=== PATIENT | male | born 1970 | race Caucasian/White ===

== ENCOUNTER 2016-06-22 12:28 | Emergency (ER) | payer SELFPAY ==
[2016-06-22 13:04] LABS: APPEARANCE CLOUDY (CLEAR); COLOR YELLOW (YELLOW); LEUKOCYTE ESTERASE 2+ (NEGATIVE); NITRITE POSITIVE (NEGATIVE)
[2016-06-22 13:05] LABS: BACTERIA MANY /hpf (NONE SEEN); BILIRUBIN NEGATIVE (NEGATIVE); EPITHELIAL CELLS OCC /hpf (0-5); GLUCOSE NEGATIVE (NEGATIVE); GRANULAR CAST NONE SEEN /lpf (NONE SEEN); HYALINE CAST NONE SEEN /lpf (NONE SEEN); KETONE NEGATIVE (NEGATIVE); MUCUS NONE SEEN /lpf (NONE SEEN); PROTEIN 2+ mg/dL (NEGATIVE); RED CELL CAST NONE SEEN /lpf (NONE SEEN); RED CELLS - URINE OCC /hpf (0-5); SPERMATOZOA NONE SEEN /hpf (NONE SEEN); UROBILINOGEN NORMAL (NORMAL); YEAST NONE SEEN /hpf (NONE SEEN)
[2016-06-22 13:15] LABS: BASOPHILS 0.1 % (0.0-2.0); EOSINOPHILS 0.1 % (0-7); HEMATOCRIT 46.9 % (42.0-54.0); HEMOGLOBIN 16.3 g/dL (13.5-17.5); IMMATURE GRANULOCYTES 0.2 % (0-5); LYMPHOCYTES 11.1 % (15-50); MCH 32.9 pg (26.0-34.0); MCHC 34.8 g/dL (31.0-37.0); MCV 94.6 fL (80.0-100.0); MEAN PLATELET VOLUME 11.1 fL (7.4-10.4); MONOCYTES 12.2 % (2-11); NEUTROPHILS 76.3 % (40-80); PLATELET COUNT 168 10x3/uL (130-400); RBC 4.96 10x6/uL (4.20-6.10); RDW 13.3 % (11.5-14.5); WBC 18.1 10x3/uL (4.8-10.8)
[2016-06-22 13:40] LABS: ALBUMIN 3.4 g/dL (3.4-5.0); ALKALINE PHOSPHATASE 100 U/L (46-116); ALT (SGPT) 30 U/L (10-68); CALC OSMOLALITY 273 mosm/kg (275-300); CALCIUM 8.7 mg/dL (8.5-10.1); CARBON DIOXIDE 31.1 mmol/L (21.0-32.0); CHLORIDE - SERUM 98 mmol/L (98-107); CREATININE - SERUM 0.9 mg/dL (0.6-1.3); GLUCOSE 104 mg/dL (74-106); POTASSIUM - SERUM 4.2 mmol/L (3.5-5.1); PROTEIN - SERUM 7.6 g/dL (6.4-8.2); SODIUM 136 mmol/L (136-145); UREA NITROGEN 18 mg/dL (7-18); eGFR NON AFRICAN AMERICAN > 90 mL/min (90-120)
[2016-06-24 03:23] VITALS: BMI 24.4
== END 2016-06-22 16:35 | disposition home or self-care (01) ==
LOC: D.ER 12:28
PROVIDERS: Emergency Medicine
DX: N10 Acute pyelonephritis (principal); F17.200 Nicotine dependence, unspecified, uncomplicated

== ENCOUNTER 2016-06-23 21:38 | Inpatient (IN) | payer SELFPAY ==
[~2016-06-23] VITALS: Ht 182.9 cm; Wt 81.8 kg
[2016-06-24 00:14] LABS: BASOPHILS 0.1 % (0.0-2.0); EOSINOPHILS 0.1 % (0-7); HEMATOCRIT 42.7 % (42.0-54.0); HEMOGLOBIN 14.7 g/dL (13.5-17.5); IMMATURE GRANULOCYTES 0.2 % (0-5); LYMPHOCYTES 8.7 % (15-50); MCH 32.3 pg (26.0-34.0); MCHC 34.4 g/dL (31.0-37.0); MCV 93.8 fL (80.0-100.0); MEAN PLATELET VOLUME 11.2 fL (7.4-10.4); MONOCYTES 19.9 % (2-11); PLATELET COUNT 168 10x3/uL (130-400); RBC 4.55 10x6/uL (4.20-6.10); RDW 13.4 % (11.5-14.5); WBC 15.3 10x3/uL (4.8-10.8)
[2016-06-24 00:29] LABS: ALKALINE PHOSPHATASE 91 U/L (46-116); BILIRUBIN - TOTAL 0.54 mg/dL (0.2-1.3); CALC OSMOLALITY 273 mosm/kg (275-300); CALCIUM 8.8 mg/dL (8.5-10.1); CARBON DIOXIDE 26.8 mmol/L (21.0-32.0); CHLORIDE - SERUM 100 mmol/L (98-107); CREATININE - SERUM 0.8 mg/dL (0.6-1.3); GLUCOSE 114 mg/dL (74-106); POTASSIUM - SERUM 3.8 mmol/L (3.5-5.1); PROTEIN - SERUM 7.9 g/dL (6.4-8.2); SODIUM 136 mmol/L (136-145); UREA NITROGEN 15 mg/dL (7-18); eGFR NON AFRICAN AMERICAN > 90 mL/min (90-120)
[2016-06-24 00:31] LABS: ALT (SGPT) 22 U/L (10-68)
[2016-06-24 01:30] LABS: APPEARANCE CLEAR (CLEAR); BILIRUBIN NEGATIVE (NEGATIVE); COLOR DK YELLOW (YELLOW); GLUCOSE NEGATIVE (NEGATIVE); KETONE NEGATIVE (NEGATIVE); LEUKOCYTE ESTERASE TRACE (NEGATIVE); NITRITE NEGATIVE (NEGATIVE); PROTEIN 1+ mg/dL (NEGATIVE)
[2016-06-24 01:35] LABS: BACTERIA MODERATE /hpf (NONE SEEN); EPITHELIAL CELLS 0-5 /hpf (0-5); HYALINE CAST RARE /lpf (NONE SEEN); MUCUS >1+ /lpf (NONE SEEN); RED CELLS - URINE 0-5 /hpf (0-5)
--- NOTE | 2016-06-24 02:34 | NUR ---
REC'D TO ROOM 2234 FROM ER DEPT PER WC A 45 Y/O W/M PER SERVICES DR. MARIA WITH DX. UTI/POLYNEPHRITIS ALLERGY=PNC. SALINE LOCK PATENT RT FORE ARM SITE CLEAR. AT BEDSIDE. UP AD ROCKY IN ROOM. ASSESSMENT PER ADMIT PACKET.
[2016-06-24] MEDS ORDERED: CIPRO500 MG PO (03:10)
[2016-06-24] MEDS ORDERED: PHENERGAN25 M1 PO (03:11)
[2016-06-24] MEDS ORDERED: ACETAMINOPHEN500 M1 PO (03:12)
--- NOTE | 2016-06-24 03:18 | NUR ---
NS STARTED AT 125CC'S/HR TO IV SITE RT FOREARM. SR UP X2 CALL LIGHT WITHIN REACH.
[2016-06-24 03:23] VITALS: BP 133/85; Ht 182.9 cm; Wt 81.8 kg
[2016-06-24 07:58] VITALS: BP 130/79
--- NOTE | 2016-06-24 08:05 | NUR ---
PT AOX4 RESP EVEN AND NONLABORED IV TO RIGHT FOREARM PATENT AND INTACT PT DENIES NEEDS AT THIS TIME WILL CONTINUE TO MONITOR BED AT LOWEST SETTING CALL LIGHT WITHIN REACH
[2016-06-24 11:45] VITALS: BP 123/89
[2016-06-24 12:53] LABS: BASOPHILS 0.2 % (0.0-2.0); EOSINOPHILS 0.6 % (0-7); HEMOGLOBIN 13.8 g/dL (13.5-17.5); IMMATURE GRANULOCYTES 0.2 % (0-5); LYMPHOCYTES 11.6 % (15-50); MCH 31.7 pg (26.0-34.0); MCHC 33.7 g/dL (31.0-37.0); MEAN PLATELET VOLUME 10.9 fL (7.4-10.4); MONOCYTES 14.5 % (2-11); NEUTROPHILS 72.9 % (40-80); PLATELET COUNT 174 10x3/uL (130-400); RBC 4.36 10x6/uL (4.20-6.10); RDW 13.5 % (11.5-14.5); WBC 12.1 10x3/uL (4.8-10.8)
[2016-06-24 15:16] VITALS: BP 122/82
[2016-06-24 20:00] VITALS: BP 132/73
--- NOTE | 2016-06-24 20:56 | NUR ---
RESTING IN BED NO ACUTE DISTRESS NOTED VOICES NEEDS TO STAFF ALL ADLS PER STAFF ASSIST CALL LIGHT IN REACH SIDE RAILS UP X 2
[2016-06-25] VITALS: BP 135/78
--- NOTE | 2016-06-25 02:08 | NUR ---
PT IV RESITED DUE TO INFILTRATION RESITED TO LEFT FORARM 20 GA X 1 STICK.
--- NOTE | 2016-06-25 03:18 | NUR ---
PT SEEN. RESTING QUIETLY WITH EYES CLOSED. RESP EVEN AND UNLABORED. IV LEFT ARM WITHOUT REDDNESS OR SWELLING. FAMILY AT BEDISDE. CALL LIGHT IN REACH
[2016-06-25 04:00] VITALS: BP 117/64
--- NOTE | 2016-06-25 05:31 | NUR ---
PT OFF OF FLOOR AT THE MOMENT.
[2016-06-25 06:14] LABS: BASOPHILS 0.2 % (0.0-2.0); EOSINOPHILS 1.8 % (0-7); HEMATOCRIT 39.6 % (42.0-54.0); HEMOGLOBIN 13.2 g/dL (13.5-17.5); IMMATURE GRANULOCYTES 0.3 % (0-5); MCH 31.4 pg (26.0-34.0); MCHC 33.3 g/dL (31.0-37.0); MCV 94.3 fL (80.0-100.0); MEAN PLATELET VOLUME 11.1 fL (7.4-10.4); MONOCYTES 15.5 % (2-11); NEUTROPHILS 58.2 % (40-80); PLATELET COUNT 206 10x3/uL (130-400); RDW 13.6 % (11.5-14.5); WBC 9.9 10x3/uL (4.8-10.8)
[2016-06-25 06:34] LABS: ALBUMIN 2.4 g/dL (3.4-5.0); ALKALINE PHOSPHATASE 71 U/L (46-116); ALT (SGPT) 19 U/L (10-68); BILIRUBIN - TOTAL 0.51 mg/dL (0.2-1.3); CALC OSMOLALITY 276 mosm/kg (275-300); CALCIUM 8.1 mg/dL (8.5-10.1); CARBON DIOXIDE 24.6 mmol/L (21.0-32.0); CHLORIDE - SERUM 105 mmol/L (98-107); CREATININE - SERUM 0.8 mg/dL (0.6-1.3); GLUCOSE 102 mg/dL (74-106); PROTEIN - SERUM 6.7 g/dL (6.4-8.2); SODIUM 139 mmol/L (136-145); UREA NITROGEN 11 mg/dL (7-18); eGFR NON AFRICAN AMERICAN > 90 mL/min (90-120)
--- NOTE | 2016-06-25 08:07 | NUR ---
RESITING IN BED, DENIES NEEDS, ALERT AND ORIENTED, CALL LIGHT IN REACH, BED LOWEST POSITION, WILL CONTINUE TO MONITOR
[2016-06-25 08:26] VITALS: BP 121/78
[2016-06-25] MEDS ORDERED: CIPRO500 MG PO (11:54)
[2016-06-25] MEDS ORDERED: HYDROCODONE-APA1 TAB PO (11:54)
--- NOTE | 2016-06-25 12:00 | NUR ---
AWAKE ALERT COLOR ADQ SKIN WARM AND DRY AT PRESENT.
--- NOTE | 2016-06-25 16:12 | NUR ---
DISCHARGE INSTRUCTION AND PAPERS GIVEN, QUESTIONS ANSWERED, IV REMOVED TIP INTACT, DISCHARGED PER WC WITH BELONGINGS
== END 2016-06-25 16:15 | disposition home or self-care (01) | DRG 690 ==
LOC: D.ER 21:38 → D.MS 06-24 01:46
PROVIDERS: Family Medicine; Physician Assistant Medical; ADMIT Family Medicine
DX: N10 Acute pyelonephritis (principal); F17.203 Nicotine dependence unspecified, with withdrawal; B96.20 Unspecified Escherichia coli [E. coli] as the cause of diseases classified elsewhere; R31.9 Hematuria, unspecified

== ENCOUNTER 2017-12-17 17:57 | Emergency (ER) | payer SELFPAY ==
[~2017-12-17] VITALS: Ht 182.9 cm; Wt 79.5 kg
[~2017-12-17 17:57] MED LIST: ACETAMINOPHEN500 M1 PO; CIPRO500 MG PO; HYDROCODONE-APA1 TAB PO; PHENERGAN25 M1 PO
[2017-12-17 18:13] VITALS: Ht 182.9 cm; Wt 79.5 kg
[2017-12-17] MEDS ORDERED: KEFLEX500 MG PO (20:08)
[2017-12-17 20:47] VITALS: BP 151/82
== END 2017-12-17 20:20 | disposition home or self-care (01) ==
LOC: D.ER 17:57
DX: H60.92 Unspecified otitis externa, left ear (principal); H92.02 Otalgia, left ear; F17.200 Nicotine dependence, unspecified, uncomplicated

== ENCOUNTER 2018-02-07 15:40 | Emergency (ER) | payer SELFPAY ==
[~2018-02-07] VITALS: Ht 182.9 cm; Wt 81.8 kg
[~2018-02-07 15:40] MED LIST changes: +KEFLEX500 MG PO
[2018-02-07 16:00] VITALS: Ht 182.9 cm; Wt 81.8 kg
[2018-02-07 16:21] LABS: BASOPHILS 0.5 % (0-2); EOSINOPHILS 4.6 % (0-7); HEMOGLOBIN 16.3 g/dL (13.5-17.5); IMMATURE GRANULOCYTES 0.2 % (0-5); MCH 33.6 pg (26.0-34.0); MCHC 34.7 g/dL (31.0-37.0); MCV 96.9 fL (80.0-100.0); MEAN PLATELET VOLUME 10.2 fL (7.4-10.4); MONOCYTES 6.6 % (2-11); NEUTROPHILS 56.1 % (40-80); PLATELET COUNT 246 10x3/uL (130-400); RBC 4.85 10x6/uL (4.20-6.10); RDW 13.2 % (11.5-14.5); WBC 9.6 10x3/uL (4.8-10.8)
[2018-02-07 16:34] LABS: APPEARANCE HAZY (CLEAR); COLOR YELLOW (YELLOW); GLUCOSE NEGATIVE (NEGATIVE); NITRITE POSITIVE (NEGATIVE); PROTEIN NEGATIVE (NEGATIVE)
[2018-02-07 16:35] LABS: BILIRUBIN NEGATIVE (NEGATIVE); KETONE NEGATIVE (NEGATIVE); UROBILINOGEN NORMAL (NORMAL)
[2018-02-07 16:36] LABS: BACTERIA MANY /hpf (NONE SEEN); RED CELLS - URINE 0-5 /hpf (0-5)
[2018-02-07 16:38] LABS: ALBUMIN 3.5 g/dL (3.4-5.0); ALKALINE PHOSPHATASE 100 U/L (46-116); ALT (SGPT) 32 U/L (10-68); BILIRUBIN - TOTAL 0.48 mg/dL (0.2-1.3); CALC OSMOLALITY 275 mosm/kg (275-300); CALCIUM 8.9 mg/dL (8.5-10.1); CARBON DIOXIDE 29.9 mmol/L (21.0-32.0); CHLORIDE - SERUM 100 mmol/L (98-107); CREATININE - SERUM 0.8 mg/dL (0.6-1.3); GLUCOSE 103 mg/dL (74-106); PROTEIN - SERUM 8.2 g/dL (6.4-8.2); SODIUM 138 mmol/L (136-145); UREA NITROGEN 13 mg/dL (7-18); eGFR NON AFRICAN AMERICAN > 90 mL/min (90-120)
[2018-02-07] MEDS ORDERED: BACTRIM DS1 TAB PO (18:46)
[2018-02-08 01:21] VITALS: BP 154/77
== END 2018-02-07 19:28 | disposition home or self-care (01) ==
LOC: D.ER 15:40
PROVIDERS: Family Medicine
DX: N30.90 Cystitis, unspecified without hematuria (principal); F17.200 Nicotine dependence, unspecified, uncomplicated

== ENCOUNTER 2018-08-16 16:03 | Inpatient (IN) | payer SELFPAY ==
[~2018-08-16 16:03] MED LIST changes: +BACTRIM DS1 TAB PO
[2018-08-16 16:46] LABS: BASOPHILS 0.4 % (0-2); EOSINOPHILS 4.5 % (0-7); HEMATOCRIT 46.5 % (42.0-54.0); HEMOGLOBIN 16.4 g/dL (13.5-17.5); IMMATURE GRANULOCYTES 0.3 % (0-5); LYMPHOCYTES 24.9 % (15-50); MCHC 35.3 g/dL (31.0-37.0); MCV 93.6 fL (80.0-100.0); MEAN PLATELET VOLUME 10.5 fL (7.4-10.4); MONOCYTES 6.8 % (2-11); NEUTROPHILS 63.1 % (40-80); PLATELET COUNT 238 10x3/uL (130-400); RBC 4.97 10x6/uL (4.20-6.10); RDW 13.1 % (11.5-14.5); WBC 10.5 10x3/uL (4.8-10.8)
[2018-08-16 17:35] LABS: APPEARANCE CLEAR (CLEAR); BILIRUBIN NEGATIVE (NEGATIVE); COLOR YELLOW (YELLOW); GLUCOSE NEGATIVE (NEGATIVE); KETONE NEGATIVE (NEGATIVE); NITRITE POSITIVE (NEGATIVE); PROTEIN NEGATIVE (NEGATIVE); SPECIFIC GRAVITY 1.025 (1.005-1.020); UROBILINOGEN NORMAL (NORMAL)
[2018-08-16 17:36] LABS: RED CELLS - URINE 0-5 /hpf (0-5)
[2018-08-16 17:37] LABS: BACTERIA MANY /hpf (NONE SEEN)
--- NOTE | 2018-08-16 18:30 | NUR ---
LEFT FOOT HAS STRONG PALPABLE PEDAL PULSE RIGHT FOOT UNABLE TO PALPATE OR AUSCULATATE PEDAL PULSE VIA US. + RIGHT DORSALIS PEDIS VIA US
[2018-08-16 19:00] LABS: ALBUMIN 3.8 g/dL (3.4-5.0); ALKALINE PHOSPHATASE 109 U/L (46-116); ALT (SGPT) 26 U/L (10-68); BILIRUBIN - TOTAL 0.69 mg/dL (0.2-1.3); CALC OSMOLALITY 276 mosm/kg (275-300); CALCIUM 9.2 mg/dL (8.5-10.1); CARBON DIOXIDE 26.7 mmol/L (21.0-32.0); CHLORIDE - SERUM 101 mmol/L (98-107); CREATININE - SERUM 0.8 mg/dL (0.6-1.3); GLUCOSE 98 mg/dL (74-106); POTASSIUM - SERUM 4.6 mmol/L (3.5-5.1); PROTEIN - SERUM 8.2 g/dL (6.4-8.2); SODIUM 137 mmol/L (136-145); UREA NITROGEN 21 mg/dL (7-18); eGFR NON AFRICAN AMERICAN > 90 mL/min (90-120)
--- NOTE | 2018-08-16 19:30 | NUR ---
PATIENT AWAKE AND ALERT, COLOR WNL FOR RACE, RESPIRATIONS EVEN AND UNALBORED. FAMILY AT BEDSIDE. UPDATED ON PLAN OF CARE AND DELAYS IN CARE. WILL CONTINUE TO MONITOR.
--- NOTE | 2018-08-16 20:30 | NUR ---
NO NEEDS NOTED. UPDATED ON PLAN OF CARE AND DELAYS IN CARE. WILL CONTINUE TO MONITOR.
[2018-08-16 20:32] VITALS: BP 123/63
--- NOTE | 2018-08-16 21:30 | NUR ---
NO NEEDS NOTED. WILL CONTINUE TO MONITOR.
[2018-08-16 22:29] VITALS: BP 125/62
[2018-08-16 22:56] VITALS: BP 126/69; BMI 24.4
--- NOTE | 2018-08-17 03:45 | NUR ---
RESTING IN BED RESPRATIONS EVEN AND UNLABORED CALL LIGHT IN REACH.
[2018-08-17 04:19] LABS: BASOPHILS 0.4 % (0-2); EOSINOPHILS 6.8 % (0-7); HEMATOCRIT 44.9 % (42.0-54.0); HEMOGLOBIN 15.8 g/dL (13.5-17.5); IMMATURE GRANULOCYTES 0.2 % (0-5); LYMPHOCYTES 28.6 % (15-50); MCH 32.9 pg (26.0-34.0); MCHC 35.2 g/dL (31.0-37.0); MCV 93.5 fL (80.0-100.0); MEAN PLATELET VOLUME 10.7 fL (7.4-10.4); MONOCYTES 10.1 % (2-11); NEUTROPHILS 53.9 % (40-80); PLATELET COUNT 218 10x3/uL (130-400); RDW 13.1 % (11.5-14.5); WBC 11.3 10x3/uL (4.8-10.8)
[2018-08-17 04:34] LABS: CALC OSMOLALITY 275 mosm/kg (275-300); CALCIUM 8.7 mg/dL (8.5-10.1); CARBON DIOXIDE 25.6 mmol/L (21.0-32.0); CHLORIDE - SERUM 102 mmol/L (98-107); CREATININE - SERUM 0.8 mg/dL (0.6-1.3); GLUCOSE 105 mg/dL (74-106); SODIUM 136 mmol/L (136-145); UREA NITROGEN 24 mg/dL (7-18); eGFR NON AFRICAN AMERICAN > 90 mL/min (90-120)
[2018-08-17 04:43] LABS: POTASSIUM - SERUM 3.7 mmol/L (3.5-5.1)
[2018-08-17 05:56] VITALS: BP 123/71
--- NOTE | 2018-08-17 08:00 | NUR ---
PATIENT IN BED WITH IV INTACT. NO COMPLAINTS OR SIGNS OF DISTRESS. FAMILY AT BEDSIDE. CALL LIGHT WITHIN REACH.
--- NOTE | 2018-08-17 09:00 | NUR ---
PATIENT UP WITH , NOT IN ROOM AT THIS TIME.
[2018-08-17 09:13] VITALS: BP 123/83
--- NOTE | 2018-08-17 11:23 | NUR ---
PATIENT UP WITH , NOT IN ROOM AT THIS TIME.
[2018-08-17 12:00] VITALS: BP 109/65
--- NOTE | 2018-08-17 14:01 | NUR ---
PATIENT IN BED WITH IV INTACT. NO COMPLAINTS OR SIGNS OF DISTRESS. IV INTACT. AT BEDSIDE. CALL LIGHT WITHIN REACH.
--- NOTE | 2018-08-17 18:23 | NUR ---
was asked to SPEAK TO PT REGARDING HIS DECISION TO LEAVE AMA. PT STATES "I'M GONNA FIND ANOTHER DOCTOR. DR. LEWIS ISNT GOING TO DO ANYTHING. HE TOLD ME TO QUIT SMOKINGAND WALK FOR 30 DAYS. I CANT BE DENIED CARE B/C I SMOKE. AT ANY RATE, I DONT WANT TO FIGHT WITH ANYONE. PLEASE JUST GIVE ME MY PAPERWORK SO I CAN GO PLEASE" AMA PAPERWORK SIGNED. IV DC'D CATH INTACT THEN BAND AID APPLIED.
--- NOTE | 2018-08-19 08:11 | MORECARE ---
CASE MANAGEMENT DISCHARGE SUMMARY PATIENT: MELY VIGIL UNIT: [id number] ADM DATE: 08/16/18 AGE: 47 : 68 SEX: M ROOM/BED: D.2225 AUTHOR: EDELMIRA HERZOG PHYSICIAN: REFERRING PHYSICIAN: ILAN ESCOBEDO MD DATE OF SERVICE: 08/19/18 Discharge Plan Patient Name: MEYL [facility]IGIL [facility] [facility] 1970 Planned Disposition: Anticipated Discharge Date: Discharge Date: 08/17/2018 Expected LOS: 0 Initial Reviewer: [email or web address] Initial Review Date: 08/19/2018 Generated: 08/19/18 9:11 am Patient Name: MELY VIGIL Page [phone] at 0811 All edits/amendments must be made on the electronic document DICTATION DATE: 08/19/18809 MARKETING SYSTEMS MANAGER: PADMINI 08/19/1810 RPT#: [id number] DC DATE:08/17/18 STATUS: DIS IN [facility] [address] [place] [address] END OF REPORT
[2018-08-19 13:41] VITALS: BMI 24.4
== END 2018-08-17 18:00 | disposition left against medical advice (07) | DRG 300 ==
LOC: D.ER 16:03 → D.MS 21:54
PROVIDERS: Emergency Medicine; Family Medicine; ADMIT Family Medicine; ATTEND Family Medicine
DX: I70.211 Atherosclerosis of native arteries of extremities with intermittent claudication, right leg (principal); F17.213 Nicotine dependence, cigarettes, with withdrawal; N10 Acute pyelonephritis

== ENCOUNTER → 2018-09-09 16:11 | Outpatient (CLI) | payer MEDICAID ==
[2018-08-19 13:41] VITALS: BMI 24.4
== END | disposition home or self-care (01) ==
LOC: D.CT 16:11
PROVIDERS: ATTEND Thoracic Surgery (Cardiothoracic Vascular Surgery)
DX: I99.8 Other disorder of circulatory system (principal)

== ENCOUNTER 2018-09-13 10:00 | Inpatient (IN) | payer MEDICAID ==
[~2018-09-13] VITALS: Ht 182.9 cm; Wt 77.7 kg
[2018-09-13 11:00] LABS: BASOPHILS 0.4 % (0-2); EOSINOPHILS 7.1 % (0-7); HEMATOCRIT 47.2 % (42.0-54.0); HEMOGLOBIN 16.5 g/dL (13.5-17.5); IMMATURE GRANULOCYTES 0.2 % (0-5); LYMPHOCYTES 19.4 % (15-50); MCH 32.9 pg (26.0-34.0); MEAN PLATELET VOLUME 10.9 fL (7.4-10.4); MONOCYTES 8.4 % (2-11); NEUTROPHILS 64.5 % (40-80); PLATELET COUNT 260 10x3/uL (130-400); RBC 5.02 10x6/uL (4.20-6.10); RDW 13.3 % (11.5-14.5); WBC 13.5 10x3/uL (4.8-10.8)
[2018-09-13 11:08] LABS: APTT 32.1 SECONDS (22.8-39.4); PROTIME 12.7 SECONDS (11.6-15.0)
[2018-09-13 11:09] LABS: ALBUMIN 3.7 g/dL (3.4-5.0); ALKALINE PHOSPHATASE 114 U/L (46-116); ALT (SGPT) 31 U/L (10-68); BILIRUBIN - TOTAL 0.62 mg/dL (0.2-1.3); CALC OSMOLALITY 276 mosm/kg (275-300); CARBON DIOXIDE 27.6 mmol/L (21.0-32.0); CHLORIDE - SERUM 104 mmol/L (98-107); CREATININE - SERUM 0.8 mg/dL (0.6-1.3); GLUCOSE 99 mg/dL (74-106); POTASSIUM - SERUM 4.5 mmol/L (3.5-5.1); PROTEIN - SERUM 8.4 g/dL (6.4-8.2); SODIUM 138 mmol/L (136-145); UREA NITROGEN 16 mg/dL (7-18); eGFR NON AFRICAN AMERICAN > 90 mL/min (90-120)
[2018-09-13 12:56] LABS: APPEARANCE CLOUDY (CLEAR); BILIRUBIN NEGATIVE (NEGATIVE); COLOR YELLOW (YELLOW); GLUCOSE NEGATIVE (NEGATIVE); KETONE NEGATIVE (NEGATIVE); NITRITE POSITIVE (NEGATIVE); PROTEIN NEGATIVE (NEGATIVE); UROBILINOGEN NORMAL (NORMAL)
[2018-09-13 12:58] LABS: BACTERIA MANY /hpf (NONE SEEN); EPITHELIAL CELLS OCC /hpf (0-5); RED CELLS - URINE RARE /hpf (0-5); WHITE CELLS - URINE 25-50 /hpf (0-5)
[2018-09-14 10:47] LABS: HEMATOCRIT 43.9 % (42.0-54.0); HEMOGLOBIN 15.5 g/dL (13.5-17.5); MCHC 35.3 g/dL (31.0-37.0); MCV 93.6 fL (80.0-100.0); MEAN PLATELET VOLUME 10.5 fL (7.4-10.4); RBC 4.69 10x6/uL (4.20-6.10); RDW 13.1 % (11.5-14.5); WBC 10.2 10x3/uL (4.8-10.8)
[2018-09-14 11:03] LABS: APTT 31.6 SECONDS (22.8-39.4); INR 0.99 (0.85-1.17); PROTIME 12.6 SECONDS (11.6-15.0)
[2018-09-14 12:15] VITALS: BP 116/73; BMI 23.2
[2018-09-14 13:00] VITALS: BP 112/72
[2018-09-14 13:00] LABS: APPEARANCE CLEAR (CLEAR); BILIRUBIN NEGATIVE (NEGATIVE); COLOR YELLOW (YELLOW); GLUCOSE NEGATIVE (NEGATIVE); KETONE NEGATIVE (NEGATIVE); NITRITE POSITIVE (NEGATIVE); PROTEIN TRACE mg/dL (NEGATIVE); UROBILINOGEN NORMAL (NORMAL)
[2018-09-14 13:03] LABS: BACTERIA MANY /hpf (NONE SEEN); EPITHELIAL CELLS NSEEN /hpf (0-5); MUCUS <1+ /lpf (NONE SEEN); RED CELLS - URINE 0-5 /hpf (0-5)
[2018-09-14 14:00] VITALS: BP 121/66
[2018-09-14 14:18] VITALS: BP 121/66
--- NOTE | 2018-09-14 16:08 | MORECARE ---
CASE MANAGEMENT DISCHARGE SUMMARY PATIENT: MELY VIGIL UNIT: [id number] ADM DATE: 09/14/18 AGE: 47 : 68 SEX: M [facility] AUTHOR: EDELMIRA HERZOG PHYSICIAN: REFERRING PHYSICIAN: ZACKARY LEWIS MD DATE OF SERVICE: 09/14/18 Discharge Plan Patient Name: MELY VIGIL [facility] [facility] 1970 Planned Disposition: Home Anticipated Discharge Date: Discharge Date: Expected LOS: Initial Reviewer: [email or web address] Initial Review Date: 09/14/2018 Generated: 09/14/18 5:07 pm DCPIA - Discharge Planning Initial Assessment Updated by [email or web address]: Hillary Salgado on 09/14/18 4:02 pm * Is the patient Alert and Oriented? Yes * How many steps to enter\exit or inside your home? * PCP NO PCP * Pharmacy [facility] * Preadmission Environment Home with Family * ADLs Independent * Equipment None * List name and contact numbers for known caregivers / representatives who currently or will assist patient after discharge: SHABBIR VIGIL - [facility]- [phone] * Verbal permission to speak to the caregivers and representatives has been obtained from the patient. Yes * Community resources currently utilized None * Additional services required to return to the preadmission environment? No * Can the patient safely return to the preadmission environment? Yes * Has this patient been hospitalized within the prior 30 days at any hospital? No Patient Name: MELY VIGIL Page 33383 at 1608 All edits/amendments must be made on the electronic document DICTATION DATE: 09/14/18 160 INTERNAL MEDICINE SPECIALIST: PADMINI 09/14/18 160 RPT#: [id number] DC DATE: STATUS: ADM IN [facility] [address] [place] [address] END OF REPORT
--- NOTE | 2018-09-14 19:33 | MORECARE ---
CASE MANAGEMENT DISCHARGE SUMMARY PATIENT: MELY VIGIL UNIT: [id number] ADM DATE: 09/14/18 AGE: 47 : 68 SEX: M ROOM/BED: D.2206 AUTHOR: ROSENDA,DOC PHYSICIAN: REFERRING PHYSICIAN: ZACKARY LEWIS MD DATE OF SERVICE: 09/14/18 Discharge Plan Patient Name: MELY VIGIL Facility: [facility]:[place] : 1970 Planned Disposition: Home Anticipated Discharge Date: Discharge Date: Expected LOS: Initial Reviewer: [email or web address] Initial Review Date: 09/14/2018 Generated: 09/14/18 8:32 pm DCP- Discharge Planning Updated by [email or web address]: Hillary Salgado on 09/14/18 6:[address] Patient Name: MELY VIGIL Admission Status: Elective Accout number: [id number] Admission Date: 09-14-2018 : 1970 Admission Diagnosis: Attending: ZACKARY LEWIS Current LOS: 1 Anticipated DC Date: Planned Disposition: Home Primary Insurance: MEDICAID [place] Discharge Planning Comments: CM met with patient and spouse (LISA) at bedside after explaining CM role and obtaining verbal consent. Patient lives at home with his Lisa and plans to return there upon discharge. Patient feels this would be a safe discharge. CM discussed availability / needs of home health and medical equipment. Patient denies any discharge needs at this time. Patient states he will have his drive him home upon discharge. CM will continue to follow and assist as needed with discharge planning / needs. Loader Magazine Grinder: Hillary Salgado DCPIA - Discharge Planning Initial Assessment Updated by [email or web address]: Hillary Salgado on 09/14/18 4:02 pm * Is the patient Alert and Oriented? Yes * How many steps to enter\exit or inside your home? * PCP NO PCP * Pharmacy [facility] * Preadmission Environment Home with Family * ADLs Independent * Equipment None * List name and contact numbers for known caregivers / representatives who currently or will assist patient after discharge: LISA VIGIL - [facility]- [phone] * Verbal permission to speak to the caregivers and representatives has been obtained from the patient. Yes * Community resources currently utilized None * Additional services required to return to the preadmission environment? No * Can the patient safely return to the preadmission environment? Yes * Has this patient been hospitalized within the prior 30 days at any hospital? No Last DP export: 09/14/18 3:08 p Patient Name: MELY VIGIL Page 90669 at 1933 All edits/amendments must be made on the electronic document DICTATION DATE: 09/14/181931 DIRECTOR E LEARNING: PADMINI 09/14/181931 RPT#: [id number] DC DATE: STATUS: ADM IN [facility] [address] [place] [address] END OF REPORT
[2018-09-15 00:52] LABS: HEMATOCRIT 42.5 % (42.0-54.0); HEMOGLOBIN 14.8 g/dL (13.5-17.5); MCH 32.6 pg (26.0-34.0); MCHC 34.8 g/dL (31.0-37.0); MCV 93.6 fL (80.0-100.0); MEAN PLATELET VOLUME 10.6 fL (7.4-10.4); RBC 4.54 10x6/uL (4.20-6.10); RDW 13.2 % (11.5-14.5); WBC 10.4 10x3/uL (4.8-10.8)
[2018-09-15 05:34] LABS: CALC OSMOLALITY 273 mosm/kg (275-300); CALCIUM 8.5 mg/dL (8.5-10.1); CARBON DIOXIDE 24.1 mmol/L (21.0-32.0); CHLORIDE - SERUM 103 mmol/L (98-107); CREATININE - SERUM 0.7 mg/dL (0.6-1.3); GLUCOSE 104 mg/dL (74-106); POTASSIUM - SERUM 3.9 mmol/L (3.5-5.1); SODIUM 137 mmol/L (136-145); UREA NITROGEN 13 mg/dL (7-18); eGFR NON AFRICAN AMERICAN > 90 mL/min (90-120)
[2018-09-15 08:00] VITALS: BP 137/80
[2018-09-15 12:00] VITALS: BP 116/66
[2018-09-15 13:27] VITALS: Ht 182.9 cm; Wt 77.7 kg
[2018-09-15 17:22] VITALS: BP 123/89
[2018-09-16 02:32] LABS: HEMATOCRIT 42.4 % (42.0-54.0); HEMOGLOBIN 14.9 g/dL (13.5-17.5); MCH 32.6 pg (26.0-34.0); MCHC 35.1 g/dL (31.0-37.0); MCV 92.8 fL (80.0-100.0); MEAN PLATELET VOLUME 10.6 fL (7.4-10.4); RBC 4.57 10x6/uL (4.20-6.10); RDW 13.2 % (11.5-14.5); WBC 10.1 10x3/uL (4.8-10.8)
[2018-09-16 06:31] VITALS: BP 148/64
[2018-09-16 10:10] VITALS: BP 124/74
[2018-09-16 14:30] VITALS: BP 118/74
[2018-09-16 17:59] VITALS: BP 139/69
[2018-09-16 19:58] VITALS: BP 112/70
[2018-09-17] VITALS: BP 134/66
[2018-09-17 00:53] LABS: HEMATOCRIT 41.9 % (42.0-54.0); MCH 33.1 pg (26.0-34.0); MCHC 35.8 g/dL (31.0-37.0); MCV 92.5 fL (80.0-100.0); MEAN PLATELET VOLUME 10.7 fL (7.4-10.4); RBC 4.53 10x6/uL (4.20-6.10); WBC 11.2 10x3/uL (4.8-10.8)
[2018-09-17 04:00] VITALS: BP 104/57
[2018-09-17 04:52] LABS: INR 1.06 (0.85-1.17); PROTIME 13.3 SECONDS (11.6-15.0)
[2018-09-17 04:53] LABS: APTT 85.4 SECONDS (22.8-39.4)
[2018-09-17 08:59] VITALS: BP 140/72
[2018-09-17] MEDS ORDERED: LEVAQUIN750 MG PO ×2 (12:40→15:43)
[2018-09-17] MEDS ORDERED: ELIQUIS5 MG PO ×2 (12:40→15:42)
--- NOTE | 2018-09-17 13:22 | MORECARE ---
CASE MANAGEMENT DISCHARGE SUMMARY PATIENT: MELY VIGIL UNIT: [id number] ADM DATE: 09/14/18 AGE: 47 : 68 SEX: M ROOM/BED: D.2206 AUTHOR: ROSENDA,DOC PHYSICIAN: REFERRING PHYSICIAN: ZACKARY LEWIS MD DATE OF SERVICE: 09/17/18 Discharge Plan Patient Name: MELY VIGIL Facility: [facility]:[place] : 1970 Planned Disposition: Home Anticipated Discharge Date: Discharge Date: Expected LOS: Initial Reviewer: [email or web address] Initial Review Date: 09/14/2018 Generated: 09/17/18 2:22 pm Comments DCP- Discharge Planning Updated by [email or web address]: Edna Aceves on 09/17/18 12:[address] SPOKE WITH DANIEL RN ABOUT COVERAGE WITH [facility] ON ELIQUIS AND LEVAQUIN Rosalind CALLED [facility] AND SPOKE WITH ZAFAR BENZ CALLED IN ELIQUIS 5 MG BID DISPENSE 60 NO REFILLS AND LEVAQUIN 750 MG DAILY X 6 TABS NO REFILLS. IT IS COVERED AND THE COST WILL BE $4.00 $1 LEVAQUIN $3 ELIQUIS CALLED DANIEL TO LET HER KNOW THE ABOVE AND SHE WILL DC THE PATIENT CM TO FOLLOW AND ASSIST NEEDED DCP- Discharge Planning Updated by [email or web address]: Hillary Salgado on 09/14/18 6:[address] Patient Name: MELY VIGIL Admission Status: Elective Accout number: [id number] Admission Date: 09-14-2018 : 1970 Admission Diagnosis: Attending: ZACKARY LEWIS Current LOS: 1 Anticipated DC Date: Planned Disposition: Home Primary Insurance: MEDICAID [place] Discharge Planning Comments: CM met with patient and spouse (LISA) at bedside after explaining CM role and obtaining verbal consent. Patient lives at home with his Lisa and plans to return there upon discharge. Patient feels this would be a safe discharge. CM discussed availability / needs of home health and medical equipment. Patient denies any discharge needs at this time. Patient states he will have his drive him home upon discharge. CM will continue to follow and assist as needed with discharge planning / needs. Protein Purification Scientist: Hillary Salgado DCPIA - Discharge Planning Initial Assessment Updated by [email or web address]: Hillary Salgado on 09/14/18 4:02 pm * Is the patient Alert and Oriented? Yes * How many steps to enter\exit or inside your home? * PCP NO PCP * Pharmacy [facility] * Preadmission Environment Home with Family * ADLs Independent * Equipment None * List name and contact numbers for known caregivers / representatives who currently or will assist patient after discharge: LISA VIGIL - [facility]- [phone] * Verbal permission to speak to the caregivers and representatives has been obtained from the patient. Yes * Community resources currently utilized None * Additional services required to return to the preadmission environment? No * Can the patient safely return to the preadmission environment? Yes * Has this patient been hospitalized within the prior 30 days at any hospital? No Last DP export: 09/14/18 6:33 p Patient Name: MELY VIGIL Page 97966 at 1322 All edits/amendments must be made on the electronic document DICTATION DATE: 09/17/18 1321 BONDERITE OPERATOR: PADMINI 09/17/18 1321 RPT#: [id number] DC DATE: STATUS: ADM IN [facility] [address] [place] [address] END OF REPORT
[2018-09-17 13:48] VITALS: BP 124/79
== END 2018-09-17 16:30 | disposition home or self-care (01) | DRG 300 ==
LOC: D.SDCHOLD 11:00 → D.CVICU 09-14 08:00 → D.MS 09-14 08:00 → D.CVICU 09-14 10:11 → D.SDCHOLD 09-14 11:00 → D.MS 09-14 17:59
PROVIDERS: ADMIT Thoracic Surgery (Cardiothoracic Vascular Surgery); ATTEND Thoracic Surgery (Cardiothoracic Vascular Surgery)
DX: I70.221 Atherosclerosis of native arteries of extremities with rest pain, right leg (principal); N10 Acute pyelonephritis; C64.2 Malignant neoplasm of left kidney, except renal pelvis; Z72.0 Tobacco use

== ENCOUNTER → 2018-09-20 09:06 | Outpatient (CLI) | payer MEDICAID ==
[2018-09-15 13:27] VITALS: BMI 23.2
[~2018-09-20 09:06] MED LIST changes: +ACETAMINOPHEN325 MG PO; +ASPIRIN EC81 M1 PO; +ELIQUIS5 MG PO; +HYDROCODON-ACE1 EAC7 PO; +LEVAQUIN750 MG PO; +LIPITOR10 MG PO; +LOVENOX80 MG/0.8 SC; +Nicoderm [PBKC] TRANSDERM; +PLAVIX75 MG PO
[2018-09-20 09:57] LABS: APPEARANCE CLEAR (CLEAR); BILIRUBIN NEGATIVE (NEGATIVE); COLOR STRAW (YELLOW); GLUCOSE NEGATIVE (NEGATIVE); KETONE NEGATIVE (NEGATIVE); NITRITE NEGATIVE (NEGATIVE); PROTEIN NEGATIVE (NEGATIVE); SPECIFIC GRAVITY 1.005 (1.005-1.020); UROBILINOGEN NORMAL (NORMAL)
== END | disposition home or self-care (01) ==
LOC: D.LAB 09:06
PROVIDERS: ATTEND Thoracic Surgery (Cardiothoracic Vascular Surgery)
DX: N39.0 Urinary tract infection, site not specified (principal); I73.9 Peripheral vascular disease, unspecified

== ENCOUNTER 2018-09-21 14:19 | Inpatient (IN) | payer MEDICAID ==
[~2018-09-21] VITALS: Ht 182.9 cm; Wt 79.1 kg
[~2018-09-21 14:19] MED LIST changes: -ACETAMINOPHEN325 MG PO; -ASPIRIN EC81 M1 PO; -HYDROCODON-ACE1 EAC7 PO; -LIPITOR10 MG PO; -LOVENOX80 MG/0.8 SC; -Nicoderm [PBKC] TRANSDERM; -PLAVIX75 MG PO
[2018-09-22] MEDS ORDERED: LEVAQUIN750 MG PO (14:20)
[2018-09-22] MEDS ORDERED: LOVENOX80 MG/0.8 SC (14:21)
[2018-09-22] MEDS ORDERED: ACETAMINOPHEN325 MG PO (14:22)
[2018-09-22 15:12] LABS: BASOPHILS 0.6 % (0-2); EOSINOPHILS 9.1 % (0-7); HEMATOCRIT 44.7 % (42.0-54.0); HEMOGLOBIN 16.1 g/dL (13.5-17.5); IMMATURE GRANULOCYTES 0.3 % (0-5); LYMPHOCYTES 30.6 % (15-50); MCH 33.2 pg (26.0-34.0); MCV 92.2 fL (80.0-100.0); MEAN PLATELET VOLUME 10.8 fL (7.4-10.4); MONOCYTES 9.7 % (2-11); NEUTROPHILS 49.7 % (40-80); PLATELET COUNT 242 10x3/uL (130-400); RBC 4.85 10x6/uL (4.20-6.10); RDW 13.1 % (11.5-14.5)
[2018-09-22 15:25] LABS: INR 1.05 (0.85-1.17); PROTIME 13.2 SECONDS (11.6-15.0)
[2018-09-22 15:36] LABS: ALBUMIN 3.8 g/dL (3.4-5.0); ALKALINE PHOSPHATASE 102 U/L (46-116); ALT (SGPT) 7 U/L (10-68); BILIRUBIN - TOTAL 0.49 mg/dL (0.2-1.3); CALC OSMOLALITY 275 mosm/kg (275-300); CALCIUM 9.1 mg/dL (8.5-10.1); CARBON DIOXIDE 28.1 mmol/L (21.0-32.0); CHLORIDE - SERUM 100 mmol/L (98-107); CREATININE - SERUM 0.8 mg/dL (0.6-1.3); GLUCOSE 96 mg/dL (74-106); POTASSIUM - SERUM 4.4 mmol/L (3.5-5.1); PROTEIN - SERUM 8.2 g/dL (6.4-8.2); SODIUM 137 mmol/L (136-145); UREA NITROGEN 17 mg/dL (7-18); eGFR NON AFRICAN AMERICAN > 90 mL/min (90-120)
[2018-09-23] VITALS (20 sets, daily range): BP systolic 94–141; BP diastolic 53–90; Ht 182.9 cm; Wt 79.1 kg
[2018-09-23 11:39] LABS: HEMATOCRIT 39.3 % (42.0-54.0); HEMOGLOBIN 13.7 g/dL (13.5-17.5)
--- NOTE | 2018-09-23 13:39 | NUR ---
1108 PT RECEIVED FROM OR. PLACED ON 6 L NC. L SUBCLAVIAN CVL DRESSING CDI. NS 100 ML/HR. R RADIAL A LINE DRESSING CDI. WRIST PROTECTOR IN PLACE. GOOD WAVE FORM. O'D. R GROIN INCISION SITE SOFT, DRESSING CDI. LORENZO DRAIN COMPRESSED. NO SIGNS OF BLEEDING. PULSES PALPABLE. FAMILY UPDATED BY DR LEWIS. ALARMS SET. NO NEEDS NOTED. 1330 A LINE, L FOREARM PERIPHERAL IV, AND GARNER DC'D PER PROTOCOL. TIP INTACT.
--- NOTE | 2018-09-23 15:45 | NUR ---
DANGLED ON SIDE OF BED. NO ADVERSE REACTIONS OR COMPLICATIONS.
--- NOTE | 2018-09-23 16:48 | NUR ---
AMBULATED TO BATHROOM, URINATED, BACK TO BED WITH NO ISSUES.
--- NOTE | 2018-09-23 17:20 | NUR ---
EATING DINNER. AT BEDSIDE. NO NEEDS AT THIS TIME.
--- NOTE | 2018-09-23 19:00 | NUR ---
REPORT RECEIVED, SHIFT ASSESSMENT COMPLETE PER FLOW SHEET, PT AAOx4, DENIES PAIN OR NEEDS, AT BEDSIDE, RIGHT GROIN SOFT DRSG C/D/I, LORENZO COMPRESSED, LEFT SUBCLAVIAN CVL INFUSING MEDS PER MAR/ORDERS, VSS, WILL CONTINUE TO MONITOR
--- NOTE | 2018-09-23 20:17 | MORECARE ---
CASE MANAGEMENT DISCHARGE SUMMARY PATIENT: MELY VIGIL UNIT: [id number] ADM DATE: 09/23/18 AGE: 47 : 68 SEX: M ROOM/BED: [facility] AUTHOR: EDELMIRA HERZOG PHYSICIAN: REFERRING PHYSICIAN: ZACKARY LEWIS MD DATE OF SERVICE: 09/23/18 Discharge Plan Patient Name: MELY VIGIL [facility] [facility] 1970 Planned Disposition: Home Anticipated Discharge Date: Discharge Date: Expected LOS: Initial Reviewer: [email or web address] Initial Review Date: 09/23/2018 Generated: 09/23/18 9:17 pm DCPIA - Discharge Planning Initial Assessment Updated by [email or web address]: Hillary Salgado on 09/23/18 8:15 pm * Is the patient Alert and Oriented? Yes * How many steps to enter\exit or inside your home? * PCP NO PCP * Pharmacy [facility] * Preadmission Environment Home with Family * ADLs Independent * Equipment None * List name and contact numbers for known caregivers / representatives who currently or will assist patient after discharge: SHABBIR VIGIL - - [phone] * Verbal permission to speak to the caregivers and representatives has been obtained from the patient. Yes * Community resources currently utilized None * Additional services required to return to the preadmission environment? No * Can the patient safely return to the preadmission environment? Yes * Has this patient been hospitalized within the prior 30 days at any hospital? Yes Patient Name: MELY VIGIL Page 82118 at 2017 All edits/amendments must be made on the electronic document DICTATION DATE: 09/23/18 2017 MACHINE TRIMMER: PADMINI 09/23/18 2017 RPT#: [id number] DC DATE: STATUS: ADM IN [facility] [address] [place] [address] END OF REPORT
--- NOTE | 2018-09-23 20:24 | MORECARE ---
CASE MANAGEMENT DISCHARGE SUMMARY PATIENT: MELY VIGIL UNIT: [id number] ADM DATE: 09/23/18 AGE: 47 : 68 SEX: M ROOM/BED: D.[facility] AUTHOR: ROSEDNA,DOC PHYSICIAN: REFERRING PHYSICIAN: ZACKARY LEWIS MD DATE OF SERVICE: 09/23/18 Discharge Plan Patient Name: MELY VIGIL Facility: [facility]:[place] : 1970 Planned Disposition: Home Anticipated Discharge Date: Discharge Date: Expected LOS: Initial Reviewer: [email or web address] Initial Review Date: 09/23/2018 Generated: 09/23/18 9:24 pm Comments DCP- Discharge Planning Updated by [email or web address]: Hillary Salgado on 09/23/18 7:[address] Patient Name: EMLY VIGIL Admission Status: Urgent Accout number: [id number] Admission Date: 09-23-2018 : 1970 Admission Diagnosis: Attending: ZACKARY LEWSI Current LOS: 1 Anticipated DC Date: Planned Disposition: Home Primary Insurance: MEDICAID [place] Discharge Planning Comments: CM met with patient and spouse (LISA) at bedside after explaining CM role and obtaining verbal consent. Patient lives at home with his Lisa and plans to return there upon discharge. Patient feels this would be a safe discharge. CM discussed availability / needs of home health and medical equipment. Patient denies any discharge needs at this time. Patient states he will have his drive him home upon discharge. CM will continue to follow and assist as needed with discharge planning / needs. Family Consumer Scientist: Hillary Salgado DCPIA - Discharge Planning Initial Assessment Updated by [email or web address]: Hillary Salgado on 09/23/18 8:15 pm * Is the patient Alert and Oriented? Yes * How many steps to enter\exit or inside your home? * PCP NO PCP * Pharmacy [facility] * Preadmission Environment Home with Family * ADLs Independent * Equipment None * List name and contact numbers for known caregivers / representatives who currently or will assist patient after discharge: LISA VIGIL - - [phone] * Verbal permission to speak to the caregivers and representatives has been obtained from the patient. Yes * Community resources currently utilized None * Additional services required to return to the preadmission environment? No * Can the patient safely return to the preadmission environment? Yes * Has this patient been hospitalized within the prior 30 days at any hospital? Yes Last DP export: 09/23/18 7:17 p Patient Name: MELY VIGIL Page 11825 at 2023 All edits/amendments must be made on the electronic document DICTATION DATE: 09/23/182022 ACTIVITIES SPECIALIST: PADMINI 09/23/182022 RPT#: [id number] DC DATE: STATUS: ADM IN [facility] [address] [place] [address] END OF REPORT
--- NOTE | 2018-09-23 23:00 | NUR ---
REASSESSMENT COMPLETE PER FLOW SHEET, NO ACUTE CHANGES NOTED, PT SUPINE HOB 20DEG, VSS, WILL CONTINUE TO MONITOR
[2018-09-24] VITALS (13 sets, daily range): BP systolic 106–149; BP diastolic 53–79
--- NOTE | 2018-09-24 03:00 | NUR ---
REASSESSMENT COMPLETE PER FLOW SHEET, NO ACUTE CHANGES OR DISTRESS NOTED, VSS, RIGHT GROIN SITE C/D/I, PT DENIES PAIN OR NEEDS, WILL CONTIONUE TO MONITOR
--- NOTE | 2018-09-24 05:30 | NUR ---
CHG BATH WITH COMPLETE LINEN AND GOWN CHANGE, PT TOLLERATED WELL, PT HAS INCREASED COUGHING AND STATES THAT IT IS R/T QUITING SMOKING RECENTLY, VSS, WILL CONTINUE TO MONITOR
[2018-09-24 05:43] LABS: HEMATOCRIT 37.8 % (42.0-54.0); HEMOGLOBIN 13.2 g/dL (13.5-17.5); MCHC 34.9 g/dL (31.0-37.0); MCV 91.7 fL (80.0-100.0); MEAN PLATELET VOLUME 10.4 fL (7.4-10.4); RBC 4.12 10x6/uL (4.20-6.10); RDW 13.1 % (11.5-14.5)
[2018-09-24 05:44] LABS: WBC 15.7 10x3/uL (4.8-10.8)
[2018-09-24 05:57] LABS: ALBUMIN 3.1 g/dL (3.4-5.0); ALKALINE PHOSPHATASE 83 U/L (46-116); BILIRUBIN - TOTAL 0.56 mg/dL (0.2-1.3); CALCIUM 8.3 mg/dL (8.5-10.1); CARBON DIOXIDE 26.4 mmol/L (21.0-32.0); CHLORIDE - SERUM 105 mmol/L (98-107); CREATININE - SERUM 0.7 mg/dL (0.6-1.3); GLUCOSE 102 mg/dL (74-106); SODIUM 142 mmol/L (136-145); eGFR NON AFRICAN AMERICAN > 90 mL/min (90-120)
[2018-09-24 05:58] LABS: ALT (SGPT) 35 U/L (10-68); CALC OSMOLALITY 281 mosm/kg (275-300); POTASSIUM - SERUM 3.5 mmol/L (3.5-5.1); UREA NITROGEN 11 mg/dL (7-18)
--- NOTE | 2018-09-24 09:05 | NUR ---
DR LEWIS HAS BEEN BY. PALPATED PULSES. ASKED FOR MAINTENANCE FLUIDS AND LORENZO DRAIN TO BE DC'D. GET PT UP TO WALK MELISSA AND SIT UP IN CHAIR. POSSIBLE DISCHARGE THIS AFTERNOON.
--- NOTE | 2018-09-24 10:09 | NUR ---
MORNING MEDICATIONS PROVIDED. LORENZO DRAIN AT RIGHT LEG REMOVED. NO BLEEDING NOTED. DRESSING APPLIED.
[2018-09-24] MEDS ORDERED: HYDROCODON-ACE1 EAC7 PO (10:17)
--- NOTE | 2018-09-24 10:29 | NUR ---
PT ASSISTED UP TO WALK. ENTIRE LENGTH OF MELISSA WALKED. PT C/O TIGHTNESS IN UPPER LEG, BUT SAYS FOOT FEELS OK. RETURNED TO CHAIR AT BEDSIDE AND PLACED ON MONITORING. RIGHT PEDAL PULSE PALPABLE.
--- NOTE | 2018-09-24 11:03 | OP ---
PATIENT NAME: MELY VIGIL MEDICAL RECORD: [id number] :[birth year] LOCATION:D.CVI D.CV08 ADMISSION DATE:09/23/18 SURGEON: IVAN LEWIS MD DATE OF OPERATION: 09/23/2018 SURGEON: Ivan Lewis MD SLICING MACHINE FEEDER: Syd Patrick. OPERATION PERFORMED. 1. Right femoral endarterectomy. 2. Profunda and superficial femoral thrombectomy. 3. Measurement of external iliac arterial pressure. PREOPERATIVE DIAGNOSIS: Right femoral occlusion. POSTOPERATIVE DIAGNOSIS: Right femoral occlusion. ANESTHESIA: General endotracheal anesthesia. ESTIMATED BLOOD LOSS: 50 cc. SPECIMENS: 1. Femoral thrombus. 2. Femoral endarterectomy. COMPLICATIONS: None. CONDITION: Stable. DISPOSITION: CV ICU. OPERATIVE FINDINGS: 1. Occlusion of the distal half of the common femoral, extending into the profunda femoral artery, removed with an endarterectomy and subacute thrombus removed from the origin of the profunda femoral and about 5 cm of the proximal superficial femoral. 2. Melany thrombectomy of the profunda femoral returned good flow and heparinized saline was flushed on this vessel. 3. Melany thrombectomy well down the superficial femoral returned good flow and again heparinized saline flushed on this vessel. 4. Measurement of the external iliac pressure was equal to the radial arterial catheter demonstrating no stenosis or gradient across the right iliac irregular calcification. Iliac stent was not performed. 5. CorMatrix patch closure with resultant good Doppler augmented signals in the profunda and superficial femoral and at the conclusion palpable right dorsalis pedis and posterior tibial pulses. INDICATIONS: Femoral thrombosis, claudication, rest pain, right lower extremity. PROCEDURE IN DETAIL: The patient was brought to the operative suite. General anesthesia was obtained, the patient prepped and draped. Vertical incision was made in the right groin taken down the common femoral artery. The inguinal ligament was dissected out, retracted upwardly in the external iliac and 2 large OPERATIVE REPORT [id number] MELY VIGIL branches were encircled with vessel loops. The pressure gradient was measured and was equal. This was repeated after the graft and again was equal across this iliac stenosis. The branches of the common femoral and the profunda femoral were dissected out and then the incision was extended inferiorly, dissecting the superficial femoral down beyond the 2 posterior collaterals that were seen to fill it and to a relatively normal region of superficial femoral in the subsartorial canal. Heparin was given. After the heparin had circulated, backbleeding was controlled on the profunda and superficial femoral with vessel loops. Backbleeding on the small side branches with vessel loops and then inflow with a vascular clamp. Arteriotomy was begun in the proximal portion of the common femoral artery, taken down through the region of dense calcification and total thrombosis that involved the lower one-third of the common femoral artery. The arteriotomy was extended down on to the superficial femoral. The thrombus material was removed and backbleeding was obtained from the superficial femoral. A #4 thrombectomy catheter was used and then heparin was flushed down this vessel. At the origin of the profunda femoral, the endarterectomy was begun and the plaque feathered well distally and more proximally, it was divided in the proximal common femoral. The origin of the profunda femoral had irregular material, which was removed under direct visualization. Then, a #3 Melany catheter was used with good return of blood from the profunda femoral and it was flushed with heparinized saline. Thorough irrigation was undertaken. All bits of loose debris were removed. A CorMatrix patch was fashioned to the appropriate size and sutured along the edge of the arteriotomy. Prior to completing the anastomosis, backbleeding was allowed from all major vessels and side branches and then again thorough irrigation was undertaken. Anastomosis completed, flow restored, first to the profunda femoral and then to the superficial femoral. Good Doppler augmented flow was noted. Protamine was given. A drain was placed through a separate stab wound. Antibiotic irrigation ensued. Hemostasis was assured. The wound was closed in 3 layers including skin clips and then the anesthesia reversed, the patient to the CV ICU with palpable right femoral pulses. TRANSINT:[id number] Voice Confirmation ID: [id number] DOCUMENT ID: [id number] IVAN LEWIS MD at 1103 CC: [id number] DICTATION DATE: 09/23/18 1158 BAND TACKER: 09/23/18 1241 ADM IN [facility] [address] [place] [address]
--- NOTE | 2018-09-24 11:08 | NUR ---
DR LEWIS AT BEDSIDE DISCUSSING INSTRUCTIONS AND SELF CARE
[2018-09-24] MEDS ORDERED: Nicoderm [PBKC] TRANSDERM (11:46)
[2018-09-24] MEDS ORDERED: PLAVIX75 MG PO (11:47)
[2018-09-24] MEDS ORDERED: ASPIRIN EC81 M1 PO (11:48)
[2018-09-24] MEDS ORDERED: LIPITOR10 MG PO (11:48)
--- NOTE | 2018-09-24 13:00 | NUR ---
LEFT SUBCLAVIAN CENTRAL LINE REMOVED, TIP INTACT. NO BLEEDING. SITE COVERED WITH GAUZE AND TEGADERM.
--- NOTE | 2018-09-24 13:16 | NUR ---
PT ATTEMPTED TO LEAVE WITHOUT DISCHARGE TEACHING. WAS ASKED TO RETURN TO HIS ROOM AND WOULD HAVE PAPERWORK FOR HIM. DISCHARGE TEACHING PROVIDED. UNDERSTANDS CANNOT DRIVE UNTIL FOLLOW UP. SAYS HE WAS ALSO GIVEN THAT INSTRUCTION BY DR LEWIS NURSE. MEDICATION E-SCRIBED TO PEDRO LUISEENS. LET HIM KNOW HE COULD MARTIAL ARTS INSTRUCTOR ASPIRIN, ACETAMINOPHEN AND NICOTINE PATCH OVER THE COUNT. SIGNATURES OBTAINED AND PT OFFERED WHEEL CHAIR ESCORT, BUT REFUSED. NURSE WALKED WITH PATIENT AND REMAINED BY SIDE UNTIL PT CLOSED VEHICLE DOOR.
--- NOTE | 2018-09-24 17:51 | MORECARE ---
CASE MANAGEMENT DISCHARGE SUMMARY PATIENT: MELY VIGIL UNIT: [id number] ADM DATE: 09/23/18 AGE: 47 : [birth year] SEX: M ROOM/BED: D[facility] AUTHOR: ROSENDA,DOC PHYSICIAN: REFERRING PHYSICIAN: ZACKARY LEWIS MD DATE OF SERVICE: 09/24/18 Discharge Plan Patient Name: MELY VIGIL Facility: [facility]:[place] : 1970 Planned Disposition: Home Anticipated Discharge Date: Discharge Date: 09/24/2018 Expected LOS: Initial Reviewer: [email or web address] Initial Review Date: 09/23/2018 Generated: 09/24/18 6:51 pm DCP- Discharge Planning Updated by [email or web address]: Hillary Salgado on 09/23/18 7:[address] Patient Name: MELY VIGIL Admission Status: Urgent Accout number: [id number] Admission Date: 09-23-2018 : 1970 Admission Diagnosis: Attending: ZACKARY LEWIS Current LOS: 1 Anticipated DC Date: Planned Disposition: Home Primary Insurance: MEDICAID [place] Discharge Planning Comments: CM met with patient and spouse (LISA) at bedside after explaining CM role and obtaining verbal consent. Patient lives at home with his Lisa and plans to return there upon discharge. Patient feels this would be a safe discharge. CM discussed availability / needs of home health and medical equipment. Patient denies any discharge needs at this time. Patient states he will have his drive him home upon discharge. CM will continue to follow and assist as needed with discharge planning / needs. Industrial Spraypainter: Hillary Salgado DCPIA - Discharge Planning Initial Assessment Updated by [email or web address]: Hillary Salgado on 09/23/18 8:15 pm * Is the patient Alert and Oriented? Yes * How many steps to enter\exit or inside your home? * PCP NO PCP * Pharmacy [facility] * Preadmission Environment Home with Family * ADLs Independent * Equipment None * List name and contact numbers for known caregivers / representatives who currently or will assist patient after discharge: LISA VIGIL - - [phone] * Verbal permission to speak to the caregivers and representatives has been obtained from the patient. Yes * Community resources currently utilized None * Additional services required to return to the preadmission environment? No * Can the patient safely return to the preadmission environment? Yes * Has this patient been hospitalized within the prior 30 days at any hospital? Yes Last DP export: 09/23/18 7:24 p Patient Name: MELY VIGIL Page 50877 at 1751 All edits/amendments must be made on the electronic document DICTATION DATE: 09/24/181750 ELECTRONIC EQUIPMENT REPAIRER: PADMINI 09/24/181750 RPT#: [id number] DC DATE:09/24/18 STATUS: DIS IN [facility] [address] [place] [address] END OF REPORT
== END 2018-09-24 13:21 | disposition home or self-care (01) | DRG 254 ==
LOC: D.SDCHOLD 09-23 05:00 → D.CVICU 09-23 05:00 → D.SDCHOLD 09-23 07:30 → D.CVICU 09-23 09:35
PROVIDERS: ADMIT Thoracic Surgery (Cardiothoracic Vascular Surgery); ATTEND Thoracic Surgery (Cardiothoracic Vascular Surgery)
PROC: 04CK0ZZ Extirpation of Matter from Right Femoral Artery, Open Approach (ICD-10-PCS; principal; 2018-09-23 07:30)
PROC: 04U Lower Arteries, Supplement (ICD-10-PCS; 2018-09-23 07:30)
DX: I70.211 Atherosclerosis of native arteries of extremities with intermittent claudication, right leg (principal); F17.200 Nicotine dependence, unspecified, uncomplicated

== ENCOUNTER 2018-11-25 07:23 | Inpatient (IN) | payer MEDICAID ==
[~2018-11-25] VITALS: Ht 182.9 cm; Wt 84.0 kg
[~2018-11-25 07:23] MED LIST changes: +ACETAMINOPHEN325 MG PO; +ASPIRIN EC81 M1 PO; +HYDROCODON-ACE1 EAC7 PO; +LIPITOR10 MG PO; +LOVENOX80 MG/0.8 SC; +Nicoderm [PBKC] TRANSDERM; +PLAVIX75 MG PO
[2018-11-26 14:46] LABS: BASOPHILS 0.5 % (0-2); EOSINOPHILS 8.2 % (0-7); HEMATOCRIT 39.6 % (42.0-54.0); HEMOGLOBIN 13.9 g/dL (13.5-17.5); IMMATURE GRANULOCYTES 0.2 % (0-5); LYMPHOCYTES 29.6 % (15-50); MCHC 35.1 g/dL (31.0-37.0); MCV 94.1 fL (80.0-100.0); MEAN PLATELET VOLUME 10.3 fL (7.4-10.4); MONOCYTES 7.3 % (2-11); NEUTROPHILS 54.2 % (40-80); PLATELET COUNT 227 10x3/uL (130-400); RBC 4.21 10x6/uL (4.20-6.10); RDW 13.2 % (11.5-14.5); WBC 8.3 10x3/uL (4.8-10.8)
[2018-11-26 14:55] LABS: APTT 29.9 SECONDS (22.8-39.4); INR 0.99 (0.85-1.17); PROTIME 12.6 SECONDS (11.6-15.0)
[2018-11-26 15:08] LABS: CALC OSMOLALITY 279 mosm/kg (275-300); CALCIUM 8.6 mg/dL (8.5-10.1); CARBON DIOXIDE 27.6 mmol/L (21.0-32.0); CHLORIDE - SERUM 104 mmol/L (98-107); CREATININE - SERUM 0.8 mg/dL (0.6-1.3); GLUCOSE 109 mg/dL (74-106); POTASSIUM - SERUM 4.1 mmol/L (3.5-5.1); SODIUM 139 mmol/L (136-145); UREA NITROGEN 15 mg/dL (7-18); eGFR NON AFRICAN AMERICAN > 90 mL/min (90-120)
[2018-11-30] VITALS (12 sets, daily range): BP systolic 114–166; BP diastolic 70–78; BMI 23.9; BMI 24.4
--- NOTE | 2018-11-30 14:26 | NUR ---
PATIENT POSIITONED LITHOTOMY FOR UROLIFT, THEN PLACED LATERAL RIGHT ALL AREAS PADDED AND SECURED WITH NO IMPINGEMENTS, DR MENESES PRESENT FOR POSIITONING, [facility]
--- NOTE | 2018-11-30 16:30 | NUR ---
patient stated they had no PCP
--- NOTE | 2018-11-30 16:53 | NUR ---
SHIFT ASSESSMENT COMPLTED. SCREENING DONE. PATIENT STABLE. BP IS HIGH BUT WAS INSTRUCTED NOT TO TREAT SINCE DR GAVE MULTIPLE MEDS AFTER HE WAS EXTUBATED. REPORT RECIEVED FROM DONNA OLIVARES.
--- NOTE | 2018-11-30 17:21 | NUR ---
PATIENT STATED PAIN OF 8/10. HE FELT NAUSEATED. ZOFRAN AND MORPHINE GIVEN. WILL REASSES.
--- NOTE | 2018-11-30 17:51 | NUR ---
PATIENT STATED NO RELIEF FROM MORPHINE. I CALLED DR MENESES. HE ORDERED 2 MG DILAUDED Q3HRS. WILL REASSES. FAMILY IS AT BEDSIDE.
--- NOTE | 2018-11-30 19:30 | NUR ---
PT A/O X4, LUNGS CLEAR, ABDOMINAL DRESSINGS INTACT, C/O PAIN, NO DISTRESS NOTED
--- NOTE | 2018-11-30 21:30 | NUR ---
PT AROUSES EASILY, NO DISTRESS NOTED, VITALS STABLE
--- NOTE | 2018-11-30 23:19 | NUR ---
PT C/O ABDOMINAL PAIN, GIVEN HYDROCODONE PO
--- NOTE | 2018-11-30 23:21 | OP ---
PATIENT NAME: MELY VIGIL MEDICAL RECORD: [id number] :[birth year] LOCATION:[facility] D.2303 ADMISSION DATE:11/30/18 SURGEON: DUNCAN MENESES MD DATE OF OPERATION: 11/30/2018 SURGEON: For UroLift Duncan Meneses MD Co-surgeons for left radical nephrectomy Duncan Meneses MD and Duncan gNuyen MD ANESTHESIA: General anesthesia by Luis Owen MD DIAGNOSES: 1. Obstructive BPH with recurrent urinary tract infections. 2. Left renal mass, 3.2 cm in the anterior mid pole, clinical stage T1 N0 M0. PROCEDURE: 1. UroLift times 4 in box configuration. 2. Laparoscopic hand-assisted left radical nephrectomy. FINDINGS: On cystoscopy, bladder neck obstruction, nonobstructive lateral lobes. Single ureteral orifices bilaterally with no bladder tumors. On laparotomy, the intra-abdominal bowel adhesions noted. ESTIMATED BLOOD LOSS: 100 mL. CLINICAL HISTORY: This is a 47-year-old male, who is a daily smoker one half pack per day since he was a teenager. He has significant peripheral vascular disease. 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 Dr. Osorio has performed an endarterectomy on these vessels. Subsequently, he is on Plavix. The surgery for his iliac occlusion was delayed as he had a urinary tract infection. He has been complaining of urinary tract infections with occasional gross hematuria for the past [address] scan shows a 3.2 cm left mid pole anterior solid renal mass, which extends all the way through the depths of the parenchyma into the collecting system. It is enhancing with contrast. The right kidney is normal. No renal stones are seen. Creatinine 0.7 and hemoglobin 14.8. He had a metastatic workup done including a CT scan of the chest and a bone scan. These were negative for metastatic disease. He comes now to have a left laparoscopic hand-assisted radical nephrectomy as well as placement of a UroLift procedures to relieve his prostatic obstruction. He has held his Plavix for about 5 days prior to surgery. He was given Levaquin warehouse distribution associate to the OR as he is ALLERGIC TO PENICILLIN. DESCRIPTION OF PROCEDURE: The patient was given induction of general anesthesia while he was in supine position on the OR table. He was then placed into stirrups in lithotomy position. Cystoscopy was performed using the UroLift scope. The lateral lobes of the prostate are not obstructive, but the site of obstruction is actually the bladder neck. Going into the bladder, single ureteral orifices are seen on each side and no bladder tumors were noted. I decided to place 4 UroLift units in the box configuration around the bladder neck. These were all placed 1.5 cm distal to the bladder neck. The anterior pair was placed at the anterolateral sulcus of the lateral lobe. One unit was fired on each side. The 2 posterior units were placed at about the mid urethral level. This resulted in nice open urethra. A 16-Italian Logan catheter was then inserted into the bladder and put to bag OPERATIVE REPORT [id number] MELY VIGIL. This will be for postoperative fluid monitoring. He was then turned into the lateral decubitus position where the left side was up. He was on a beanbag, which was used to hold this position. All pressure points were padded. A 7.5 cm incision was made in the anterior abdominal wall midline just superior to the umbilicus. Also, just inferior to the xiphoid, we placed a 12-mm port for the camera. Just lateral to the rectus sheath in the mid clavicular line on the left side in the left lower quadrant of the abdomen, we placed a 12-mm port for the working port. Going in with the camera, we noticed that he had adhesions of the colon and some small bowel to the anterior abdominal wall. These were taken down using the Harmonic scalpel. We then incised the lateral peritoneum along the line of Toldt. This was extended from inferiorly to cranially. There was a good plane between the kidney and the undersurface of the spleen. We took down the ligament between the spleen and the kidney. The colon was mobilized medially and inferiorly to expose the anterior surface of the kidney. Extending along the medial surface of the kidney, we identified the tail of the pancreas coming up adjacent to the kidney. This was mobilized away without any injury to the pancreas. We then dissected the posterior portion of the kidney to free it up posteriorly. As I dissected from lateral to medial along the undersurface of the kidney, we identified the ureter. The ureter was clipped multiple times and divided between the clips using Metzenbaum scissors. We then removed again medially. We identified the gonadal vessel, which was taken down using the Harmonic scalpel. We were then able to thin out the vascular pedicle with blunt dissection using the fingers. On review of the CT scan, he has 2 large renal veins and 1 renal artery. We used an endovascular MILLI 45 with a vascular load. Using the stapler, we came from inferiorly and advanced cranially along the medial edge of the kidney to divide the pedicle. Then, the vascular load stapler was used to divide the plane between the superior surface of the kidney and the undersurface of the spleen. No injury to the spleen or the pancreas was noted. Finally, the kidney was entirely free and it was removed out of the patient through the hand access port site. Surgicel unit was placed at the renal fossa. There had been some bleeding during the stapling of the renal pedicle. This accounted for the 100 mL of blood loss. No active bleeding was seen after we had finished removing the kidney. The kidney was sent to pathology in formalin. With sponge and instrument counts being correct, we used the Deshawn-Dylon device to close the fascia for the 12-mm access ports. The rectus fascia was closed using looped 0 PDS in running fashion. [place] were used to close the skin. Dressings were applied. The patient was awakened and brought to the recovery room. He will be going to the intensive care unit for monitoring postoperatively. TRANSINT:[id number] Voice Confirmation ID: [id number] DOCUMENT ID: [id number] DUNCAN MENESES MD at 2321 CC: [id number] DICTATION DATE: 11/30/18 1601 MAT WEAVER: 11/30/18 1712 ADM IN [facility] [address] [place] [address]
[2018-12-01] VITALS (17 sets, daily range): BP systolic 126–140; BP diastolic 62–83; Ht 182.9 cm; Wt 84.0 kg
--- NOTE | 2018-12-01 01:30 | NUR ---
RESTING QUIETLY WITH NO DISTRESS
--- NOTE | 2018-12-01 03:30 | NUR ---
PT SLEEPING, VITALS STABLE, NO DISTRESS NOTED
[2018-12-01 05:02] LABS: BASOPHILS 0.1 % (0-2); EOSINOPHILS 0.3 % (0-7); HEMATOCRIT 38.4 % (42.0-54.0); HEMOGLOBIN 13.3 g/dL (13.5-17.5); IMMATURE GRANULOCYTES 0.3 % (0-5); LYMPHOCYTES 11.3 % (15-50); MCH 32.5 pg (26.0-34.0); MCHC 34.6 g/dL (31.0-37.0); MCV 93.9 fL (80.0-100.0); MEAN PLATELET VOLUME 10.4 fL (7.4-10.4); MONOCYTES 8.6 % (2-11); NEUTROPHILS 79.4 % (40-80); PLATELET COUNT 236 10x3/uL (130-400); RBC 4.09 10x6/uL (4.20-6.10); RDW 13.2 % (11.5-14.5); WBC 14.3 10x3/uL (4.8-10.8)
[2018-12-01 05:18] LABS: CALC OSMOLALITY 273 mosm/kg (275-300); CALCIUM 7.7 mg/dL (8.5-10.1); CARBON DIOXIDE 25.6 mmol/L (21.0-32.0); CHLORIDE - SERUM 105 mmol/L (98-107); GLUCOSE 108 mg/dL (74-106); POTASSIUM - SERUM 4.3 mmol/L (3.5-5.1); SODIUM 137 mmol/L (136-145); UREA NITROGEN 10 mg/dL (7-18); eGFR NON AFRICAN AMERICAN 85 mL/min (90-120)
--- NOTE | 2018-12-01 05:35 | NUR ---
PT AROUSES EASILY, ABDOMINAL DRESSINGS INTACT, CONT TO HAVE HEMATURIA, VITALS STABLE
--- NOTE | 2018-12-01 08:53 | NUR ---
22 GUAGE IV STARTED TO LEFT FOREARM.
--- NOTE | 2018-12-01 10:35 | OP ---
PATIENT NAME: MELY VIGIL MEDICAL RECORD: [id number] :[birth year] LOCATION:D[facility] D.2303 ADMISSION DATE:11/30/18 SURGEON: DUNCAN CROWDER MD DATE OF OPERATION: 11/30/2018 This is a cosurgeon case. PROCEDURE: Hand-assisted laparoscopic surgery -- left nephrectomy. UROLOGIST: Dr. Lopez. GENERAL SURGEON: Duncan Crowder MD Please refer to Dr. Lopez's noted. The procedure was complex and required the attendance of 2 attending surgeons. My involvement in the operation was assisting with the midline incision and entry into the peritoneal cavity. It also included placing one of the 12-mm trocars. It included running some of the camera. I took down the intraabdominal adhesions, which were noted in the left upper quadrant as well as the left lower quadrant. These were adhesions to the colon. These were taken down with the Harmonic scalpel. There was no damage to the colon during this procedure. I then incised along the left white line of Toldt. I folded the left colon medially. I then took down the splenic flexure. The lienocolic ligament was divided with the Harmonic scalpel. I then elevated the pancreas and did some dissection behind the pancreas. At no time was the pancreas injured. This was mainly blunt dissection. Some dissection was performed underneath the spleen up to the hilum utilizing the Harmonic scalpel. Through blunt dissection, I was able to mobilize the lateral aspect of the kidney and roll it medially. I did some medial dissection of the colon off of the kidney that we did not encounter any significant bleeding. I did some stapling with the linear cutting stapler and this included stapling along the cephalad border of the kidney in order to remove the adrenal gland. I was able to withdraw the specimen out through the Sandro retractor. I then placed some Nu-Knit over the hilar staple lines as well as in the renal bed. I assisted with closure of the midline incision utilizing a running 0 PDS suture from the cephalad and caudad directions. I then assisted with closure of the fascia at the 12-mm trocar sites with 0 Vicryl sutures. I then assisted with closing the skin incision with cynthia. TRANSINT:[id number] Voice Confirmation ID: [id number] DOCUMENT ID: [id number] OPERATIVE REPORT [id number] VIGIL,MELYDUNCAN VARELA MD at 1035 CC: [id number] DICTATION DATE: 11/30/181814 VBA PROGRAMMER: 12/01/18 [address] [facility] [address] [place] [id number]
--- NOTE | 2018-12-01 15:25 | NUR ---
PATINET GIVEN BED BATH
--- NOTE | 2018-12-01 16:55 | NUR ---
DR. MENESES MADE ROUNDS. PATIENT OKAY TO TRANSFER TO FLOOR
--- NOTE | 2018-12-01 17:46 | NUR ---
CALLED REPORT TO TURNER CAO RN, MERRICK. DC'D RIGHT RADIAL ART LINE. DRESSING CDI
--- NOTE | 2018-12-01 19:25 | NUR ---
PT SITTING UP IN BED WITHOUT DISTRESS, AT BEDSIDE. STATES PAIN 6/10 IN ABD AT MIDLINE INCISION. DRESSING CDI. LAP SITES CDI. IV RIGHT HAND INFUSING NS @ 125. GARNER DRAINING BLOODY URINE. IV DC'D LEFT HAND WITH CATHETER TIP INTACT. PT TOOK STITCH OUT OF RIGHT WRIST WHERE ART LINE WAS PULLED. NO BLEEDING. ENCOURAGED PT TO WATCH FOR ANY BLEEDING, VERBALIZED UNDERSTANDING. DENIES OTHER NEEDS AT THIS TIME. CL IN REACH, WILL CTM
--- NOTE | 2018-12-01 19:25 | NUR ---
PT RESTING IN BED. NO S/S OFA CUTE DISTRESS. CL IN PLACE.
--- NOTE | 2018-12-01 19:54 | MORECARE ---
CASE MANAGEMENT DISCHARGE SUMMARY PATIENT: MELY VIGIL UNIT: [id number] ADM DATE: 11/30/18 AGE: 47 : [birth year] SEX: M ROOM/BED: D.2230 AUTHOR: EDELMIRA HERZOG PHYSICIAN: REFERRING PHYSICIAN: DUNCAN MENESES MD DATE OF SERVICE: 12/01/18 Discharge Plan Patient Name: MELY VIGIL [facility] [facility] 1970 Planned Disposition: Home or Self Care Anticipated Discharge Date: Discharge Date: Expected LOS: Initial Reviewer: [email or web address] Initial Review Date: 12/01/2018 Generated: 12/01/18 8:53 pm DCPIA - Discharge Planning Initial Assessment Updated by [email or web address]: Hillary Salgado on 12/01/18 7:53 pm * Is the patient Alert and Oriented? Yes * How many steps to enter\exit or inside your home? * PCP NO PCP * Pharmacy [facility] * Preadmission Environment Home with Family * ADLs Independent * Equipment None * List name and contact numbers for known caregivers / representatives who currently or will assist patient after discharge: SHABBIR VIGIL - [facility] - [phone] * Verbal permission to speak to the caregivers and representatives has been obtained from the patient. Yes * Community resources currently utilized None * Additional services required to return to the preadmission environment? No * Can the patient safely return to the preadmission environment? Yes * Has this patient been hospitalized within the prior 30 days at any hospital? No Patient Name: MELY VIGIL Page [id number] at 1954 All edits/amendments must be made on the electronic document DICTATION DATE: 12/01/181952 CASE MAKER: PADMINI 12/01/181952 RPT#: [id number] DC DATE: STATUS: ADM IN [facility] [address] [place] [address] END OF REPORT
--- NOTE | 2018-12-01 20:01 | MORECARE ---
CASE MANAGEMENT DISCHARGE SUMMARY PATIENT: MELY VIGIL UNIT: [id number] ADM DATE: 11/30/18 AGE: 47 : [birth year] SEX: M ROOM/BED: D.2230 AUTHOR: ROSENDADOC PHYSICIAN: REFERRING PHYSICIAN: DUNCAN MENESES MD DATE OF SERVICE: 12/01/18 Discharge Plan Patient Name: MELY VGIIL Facility: [facility]:[place] : 1970 Planned Disposition: Home or Self Care Anticipated Discharge Date: Discharge Date: Expected LOS: Initial Reviewer: [email or web address] Initial Review Date: 12/01/2018 Generated: 12/01/18 9:00 pm Comments DCP- Discharge Planning Updated by [email or web address]: Hillary Salgado on 12/01/18 6:[address] Patient Name: MELY VIGIL Admission Status: Elective Accout number: [id number] Admission Date: 11-30-2018 : 1970 Admission Diagnosis: Attending: MYLES MENESES Current LOS: 1 Anticipated DC Date: Planned Disposition: Home or Self Care Primary Insurance: MEDICAID [place] Discharge Planning Comments: CM met with patient at bedside after explaining CM role and obtaining verbal consent. Patient lives at home with his SHABBIR where he is independent with his care and plans to return there upon discharge. Patient feels this would be a safe discharge. CM discussed availability / needs of home health and medical equipment. Patient denies any discharge needs at this time. Patient states he will have his family drive him home upon discharge. CM will continue to follow and assist as needed with discharge planning / needs. Supervisor Of Operations: Hillary Salgado DCPIA - Discharge Planning Initial Assessment Updated by [email or web address]: Hillary Salgado on 12/01/18 7:53 pm * Is the patient Alert and Oriented? Yes * How many steps to enter\exit or inside your home? * PCP NO PCP * Pharmacy [facility] * Preadmission Environment Home with Family * ADLs Independent * Equipment None * List name and contact numbers for known caregivers / representatives who currently or will assist patient after discharge: SHABBIR VIGIL - SPOUSE - [phone] * Verbal permission to speak to the caregivers and representatives has been obtained from the patient. Yes * Community resources currently utilized None * Additional services required to return to the preadmission environment? No * Can the patient safely return to the preadmission environment? Yes * Has this patient been hospitalized within the prior 30 days at any hospital? No Last DP export: 12/01/18 6:54 p Patient Name: MELY VIGIL Page [id number] at 2001 All edits/amendments must be made on the electronic document DICTATION DATE: 12/01/181999 QUILLER HAND: PADMINI 12/01/181999 RPT#: [id number] DC DATE: STATUS: ADM IN [facility] [address] [place] [address] END OF REPORT
[2018-12-02 04:00] VITALS: BP 158/81
--- NOTE | 2018-12-02 07:30 | NUR ---
PT RESTING IN BED. DENIES ANY NEEDS. NO S/S OF ACUTE DISTRESS. CL IN PLACE.
[2018-12-02 09:39] VITALS: BP 150/83
[2018-12-02 10:06] LABS: BASOPHILS 0.1 % (0-2); EOSINOPHILS 1.1 % (0-7); HEMATOCRIT 38.4 % (42.0-54.0); HEMOGLOBIN 13.5 g/dL (13.5-17.5); IMMATURE GRANULOCYTES 0.1 % (0-5); LYMPHOCYTES 9.3 % (15-50); MCH 32.7 pg (26.0-34.0); MCHC 35.2 g/dL (31.0-37.0); MEAN PLATELET VOLUME 10.6 fL (7.4-10.4); MONOCYTES 11.5 % (2-11); NEUTROPHILS 77.9 % (40-80); PLATELET COUNT 199 10x3/uL (130-400); RBC 4.13 10x6/uL (4.20-6.10); RDW 13.1 % (11.5-14.5); WBC 13.6 10x3/uL (4.8-10.8)
[2018-12-02 10:09] LABS: CALC OSMOLALITY 267 mosm/kg (275-300); CALCIUM 8.5 mg/dL (8.5-10.1); CARBON DIOXIDE 26.2 mmol/L (21.0-32.0); CHLORIDE - SERUM 103 mmol/L (98-107); GLUCOSE 103 mg/dL (74-106); POTASSIUM - SERUM 4.3 mmol/L (3.5-5.1); SODIUM 135 mmol/L (136-145); UREA NITROGEN 8 mg/dL (7-18); eGFR NON AFRICAN AMERICAN 85 mL/min (90-120)
[2018-12-02 11:56] VITALS: BP 143/81
[2018-12-02 15:45] VITALS: BP 142/82
--- NOTE | 2018-12-02 18:07 | NUR ---
PT RESTING IN BED. CO OF PAIN 11/13 IN "ABD" NO S.S OF ACUTE DISTRESS. CL IN PLACE.
[2018-12-02 20:00] VITALS: BP 150/78
--- NOTE | 2018-12-02 21:00 | NUR ---
AMBULATING IN ROOM. ALERT AND ORIENTED X4. RESP IRREG. O2 @ 2L/NC. PICAYUNE. GARNER CATH PATENT AND DRAINING SHABBIR URINE. REPORTS ABD PAIN 7. LAP SITES X2 NOTED TO ABD WITH MIDLINE INCISION. NS @ 125 MLHR INFUSING IN RT HAND WITHOUT DIFF. SCDS IN USE BILAT. AT BEDSIDE. SR ELEVATED X2. CL IN REACH.
--- NOTE | 2018-12-02 21:15 | NUR ---
MEDICATED WITH NORCO FOR C/O ABD PAIN. CL IN REACH.
[2018-12-03] VITALS: BP 147/79
--- NOTE | 2018-12-03 00:50 | NUR ---
MEDICATED WITH DILAUDID PER REQUEST FOR C/O ABD PAIN. ENCOURAGED USE OF O2 @ 2L/NC. AT BEDSIDE. CL IN REACH.
[2018-12-03 04:00] VITALS: BP 142/82
--- NOTE | 2018-12-03 06:20 | NUR ---
MEDICATED WITH NORCO FOR C/O ABD PAIN RATING 8. HAS BEEN AMBULATING IN HALLWAY. C/O CONSTIPATION. EXPLAINED THAT OPIATES CAN CAUSE CONSTIPATION.
--- NOTE | 2018-12-03 07:30 | NUR ---
PT JUST RETURNING TO ROOM AFTER WALKING AROUND. IV LOCATED TO RIGHT HAND CURRENTLY SL. GARNER PRESENT PUTTING OUT A GOOD AMOUNT OF SHABBIR COLORED URINE. NO S/S OF DISTRESS, WILL CONT TO MONITOR. CURRENTLY SITTING AT BEDSIDE CHAIR.
[2018-12-03 07:50] VITALS: BP 142/72
[2018-12-03 12:46] VITALS: BP 145/69
--- NOTE | 2018-12-03 13:38 | NUR ---
NUTRITION FOLLOW UP: COMMENTS: No BM yet, only gas at this time. Patient stated he has been eating well and enjoys the food. DIET: Regular diet PO INTAKE: 71% x 6 meals WT: 185 lbs BM: x 0 since admit MEDS: Miralax, colace, lipitor, dilaudid, zofran, norco IVF: NaCl @ 125 ml/hr LABS: Na-135(L) GOALS: PO intake >/= 75%, BM q 3 days, stable wt DHS Will continue to monitor closely Clinical Dietitian Following
[2018-12-03] MEDS ORDERED: COLACE100 MG PO (13:42)
[2018-12-03] MEDS ORDERED: HYDROCODON-ACE1 EA10 PO (13:43)
--- NOTE | 2018-12-03 13:43 | MORECARE ---
CASE MANAGEMENT DISCHARGE SUMMARY PATIENT: MELY VIGIL UNIT: [id number] ADM DATE: 11/30/18 AGE: 47 : 68 SEX: M ROOM/BED: D.2230 AUTHOR: EDELMIRA HERZOG PHYSICIAN: REFERRING PHYSICIAN: DUNCAN CROWDER MD DATE OF SERVICE: 12/03/18 Discharge Plan Patient Name: MELY VIGIL Facility: [facility]:[place] : 1970 Planned Disposition: Home or Self Care Anticipated Discharge Date: Discharge Date: Expected LOS: Initial Reviewer: [email or web address] Initial Review Date: 12/01/2018 Generated: 12/03/18 2:43 pm Comments DCP- Discharge Planning Updated by [email or web address]: Catherine Lewis on 12/03/18 12:[address] Patient Name: MELY VIGIL Encounter No: [id number] : 1970 Primary Insurance: MEDICAID [place] Anticipated DC Date: Planned Disposition: Home or Self Care External Planned Provider: : DCP follow-up note: Patient and family in agreement with discharge plan. No changes to plan. States he feels comfortable taking care of his own catheter. His is in the room and will take him home. Case management will follow and assist as needed. Catherine Joshua DCP- Discharge Planning Updated by [email or web address]: Hillary Salgado on 12/01/18 6:[address] Patient Name: MELY VIGIL Admission Status: Elective Accout number: [id number] Admission Date: 11-30-2018 : 1970 Admission Diagnosis: Attending: MYLES MENESES Current LOS: 1 Anticipated DC Date: Planned Disposition: Home or Self Care Primary Insurance: MEDICAID [place] Discharge Planning Comments: CM met with patient at bedside after explaining CM role and obtaining verbal consent. Patient lives at home with his SHABBIR where he is independent with his care and plans to return there upon discharge. Patient feels this would be a safe discharge. CM discussed availability / needs of home health and medical equipment. Patient denies any discharge needs at this time. Patient states he will have his family drive him home upon discharge. CM will continue to follow and assist as needed with discharge planning / needs. Report Writer: Hillary Salgado DCPIA - Discharge Planning Initial Assessment Updated by [email or web address]: Hlilary Salgado on 12/01/18 7:53 pm * Is the patient Alert and Oriented? Yes * How many steps to enter\exit or inside your home? * PCP NO PCP * Pharmacy [facility] * Preadmission Environment Home with Family * ADLs Independent * Equipment None * List name and contact numbers for known caregivers / representatives who currently or will assist patient after discharge: SHABBIR VIGIL - SPOUSE - [phone] * Verbal permission to speak to the caregivers and representatives has been obtained from the patient. Yes * Community resources currently utilized None * Additional services required to return to the preadmission environment? No * Can the patient safely return to the preadmission environment? Yes * Has this patient been hospitalized within the prior 30 days at any hospital? No Last DP export: 12/01/18 7:01 p Patient Name: MELY VIGIL Page [phone] at 1343 All edits/amendments must be made on the electronic document DICTATION DATE: 12/03/18 1342 CASUALTY CLAIMS SUPERVISOR: PADMINI 12/03/18 1342 RPT#: [id number] [place] DATE: STATUS: ADM IN [facility] [address] [place] [address] END OF REPORT
--- NOTE | 2018-12-04 12:10 | MORECARE ---
CASE MANAGEMENT DISCHARGE SUMMARY PATIENT: MELY VIGIL UNIT: [id number] ADM DATE: 11/30/18 AGE: 47 : [birth year] SEX: M ROOM/BED: D.2230 AUTHOR: EDELMIRA HERZOG PHYSICIAN: REFERRING PHYSICIAN: DUNCAN CROWDER MD DATE OF SERVICE: 12/04/18 Discharge Plan Patient Name: MELY VIGIL Facility: [facility]:[place] : 1970 Planned Disposition: Home or Self Care Anticipated Discharge Date: Discharge Date: 12/03/2018 Expected LOS: Initial Reviewer: [email or web address] Initial Review Date: 12/01/2018 Generated: 12/04/18 1:09 pm Comments DCP- Discharge Planning Updated by [email or web address]: Catherine Lewis on 12/03/18 12:[address] Patient Name: MELY VIGIL Encounter No: [id number] : 1970 Primary Insurance: MEDICAID [place] Anticipated DC Date: Planned Disposition: Home or Self Care External Planned Provider: : DCP follow-up note: Patient and family in agreement with discharge plan. No changes to plan. States he feels comfortable taking care of his own catheter. His is in the room and will take him home. Case management will follow and assist as needed. Catherine Cariasdel DCP- Discharge Planning Updated by [email or web address]: Hillary Salgado on 12/01/18 6:[address] Patient Name: MELY VIGIL Admission Status: Elective Accout number: [id number] Admission Date: 11-30-2018 : 1970 Admission Diagnosis: Attending: MYLES MENESES Current LOS: 1 Anticipated DC Date: Planned Disposition: Home or Self Care Primary Insurance: MEDICAID [place] Discharge Planning Comments: CM met with patient at bedside after explaining CM role and obtaining verbal consent. Patient lives at home with his SHABBIR where he is independent with his care and plans to return there upon discharge. Patient feels this would be a safe discharge. CM discussed availability / needs of home health and medical equipment. Patient denies any discharge needs at this time. Patient states he will have his family drive him home upon discharge. CM will continue to follow and assist as needed with discharge planning / needs. Roll Filler: Hillary Salgado DCPIA - Discharge Planning Initial Assessment Updated by [email or web address]: Hillary Salgado on 12/01/18 7:53 pm * Is the patient Alert and Oriented? Yes * How many steps to enter\exit or inside your home? * PCP NO PCP * Pharmacy [facility] * Preadmission Environment Home with Family * ADLs Independent * Equipment None * List name and contact numbers for known caregivers / representatives who currently or will assist patient after discharge: SHABBIR VIGIL - [facility] - [phone] * Verbal permission to speak to the caregivers and representatives has been obtained from the patient. Yes * Community resources currently utilized None * Additional services required to return to the preadmission environment? No * Can the patient safely return to the preadmission environment? Yes * Has this patient been hospitalized within the prior 30 days at any hospital? No Last DP export: 12/03/18 12:43 p Patient Name: MELY VIGIL Page 22005 at 1210 All edits/amendments must be made on the electronic document DICTATION DATE: 12/04/18 120 REGISTERED DIETICIAN: PADMINI 12/04/18 120 RPT#: [id number] MO DATE:12/03/18 STATUS: DIS IN [facility] [address] [place] [address] END OF REPORT
--- NOTE | 2018-12-07 17:33 | DS ---
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 Left renal mass, 3.2 cm in the anterior pole, clinically stage T1 N0 M0, final pathology pending. PRINCIPAL PROCEDURES: 1. Laparoscopic hand-assisted left radical nephrectomy. 2. UroLift times 4 in box configuration. HOSPITAL COURSE: The patient was admitted for surgery. He underwent the above operative procedure. Postoperatively, his pain was controlled. Bowel function returned. His diet was advanced. He is being dismissed home on [place] as well as Colace. He is to follow up with Dr. Lopez in the office in 1 week for suture removal and he will have his catheter left in. TRANSINT:[id number] Voice Confirmation ID: [id number] DOCUMENT ID: [id number] DUNCAN CROWDER MD at 1733 CC: [id number] DICTATION DATE: 12/03/18 1212 FORESTRY SUPERVISOR: 12/04/18 0024 DIS IN 12/03/18 [place] [id number] [place] [address]
== END 2018-12-03 14:07 | disposition home or self-care (01) | DRG 658 ==
LOC: D.MS 11-30 08:00 → D.SDCHOLD 11-30 08:00 → D.ICU 11-30 16:23 → D.MS 12-01 18:11
PROVIDERS: Anesthesiology; ADMIT Urology; ATTEND Surgery
PROC: 0TT10ZZ Resection of Left Kidney, Open Approach (ICD-10-PCS; principal; 2018-11-30 10:00)
PROC: 0T7D8DZ Dilation of Urethra with Intraluminal Device, Via Natural or Artificial Opening Endoscopic (ICD-10-PCS; 2018-11-30 10:00)
DX: C64.2 Malignant neoplasm of left kidney, except renal pelvis (principal); N40.0 Benign prostatic hyperplasia without lower urinary tract symptoms; Z87.440 Personal history of urinary (tract) infections; N28.89 Other specified disorders of kidney and ureter

== ENCOUNTER 2018-12-07 11:44 | Inpatient (IN) | payer OTHER ==
[~2018-12-07] VITALS: Ht 182.9 cm; Wt 88.9 kg
[2018-12-07] VITALS (12 sets, daily range): BP systolic 91–115; BP diastolic 49–75; BMI 25.1
--- NOTE | ~2018-12-07 | HEMODYNAMI ---
PATIENT:MELY VIGIL MEDICAL RECORD: [id number] : 68 LOCATION:[place] [address] ADMISSION DATE: 12/07/18 Generatedon:12/08/201815:10 Patient name: MELY VIGIL Patient #: [id number] SSN: : 1970 Date of study: 12/08/2018 Page: Of Hemodynamic Procedure Report Patient Data Patient Demographics Procedure consent was obtained First Name: MELY Gender: Male Last Name: YARITZA : 1970 Middle Initial: HEATHER Age: 47 year(s) Patient #: [id number] Race: Unknown Additional ID: [id number] Contact details Address: [address] [place] [address] [facility] State: [place] City: [facility] [place] Zip code: [address] Past Medical History Allergies Allergen Reaction Date Comments Reported Penicillins 12/08/2018 Admission Admission Data Admission Date: 12/07/2018 Admission Time: 14:17 Room #: [facility] Height (in.): 72 BSA: 2.06 (m2) Height (cm.): 182.88 BMI: 25.09 (kg/m2) Weight (lbs.): 185 Weight (kg.): 83.91 Procedure Procedure Types Cath Procedure Peripheral Cath Diagnostic Procedure Range Master Peripheral Procedures Abd/Extremity Visceral/Mesenteric Mesenteric Arteriogram (Abd Artery) Procedure Description Procedure Date Procedure Date: 12/08/2018 Procedure Start Time: 13:41 Procedure Staff Name Function Donnie Castañeda MD Performing Physician Deja Ovalle RT Cost Accounting Clerk Johana Hastings RN Nurse Lisa Mathews RN Nurse Kenton Goldman RT Scrub Procedure Data Cath Procedure Fluoroscopy Diagnostic fluoroscopy Total fluoroscopy Time: time: 17.6 min 17.6 min Diagnostic fluoroscopy Total fluoroscopy dose: dose: 2163 mGy 2163 mGy Contrast Material Contrast Material Type Amount (ml) Isovue 300 120 Entry Location Entry Primary Successful Side Size Upsize Upsize Entry Closure Succes sful Closure Location (Fr) 1 (Fr) 2 (Fr) Remarks Device Remarks Femoral Exoseal artery Procedure Medications Medication Administration Route Dosage Heparin Flush Bag added to field 2 bags (1000units/500ml NS) Lidocaine 1% added to field 20 Versed I.V. 1 mg Fentanyl I.V. 50 mcg Versed I.V. 1 mg Fentanyl I.V. 50 mcg Zofran I.V. 8 mg 0.9% NaCl I.V. 1000 ml Hemodynamics Rest BSA: 2.06 (m2) O2 Consumption: Estimated: 278.6 (ml/min) O2 Consumption indexed: Estimated:135.24 (ml/min/m) Heart Rate: 110 (bpm) Snapshots Pre Cath Intra NCS Post Cath Vital Signs Time Heart Resp SPO2 etCO2 NIBP (mmHg) Rhythm Pain Sedation Rate (ipm) (%) (mmHg) Status Level (bpm) 13:27:21 113 28 13.5 128/80(99) NSR 0 (11) 10(A) , No pain 13:31:31 108 21 100 22.6 120/80(99) NSR 0 (11) 10(A) , No pain 13:35:39 109 20 100 24.8 119/79(96) NSR 0 (11) 10(A) , No pain 13:39:46 106 19 100 21.8 115/77(94) NSR 0 (11) 10(A) , No pain 13:43:52 104 25 100 23.3 116/78(87) NSR 0 (11) 8(A) , No pain 13:47:58 107 16 100 20.3 114/79(93) NSR 0 (11) 8(A) , No pain 13:52:06 109 17 100 19.5 110/73(89) NSR 0 (11) 8(A) , No pain 13:56:10 101 21 100 21.8 125/77(94) NSR 0 (11) 8(A) , No pain 14:00:17 99 22 100 22.6 118/80(103) NSR 0 (11) 8(A) , No pain 14:04:23 99 15 100 18.8 136/79(95) NSR 0 (11) 8(A) , No pain 14:08:37 101 15 23.3 125/77(100) NSR 0 (11) 8(A) , No pain 14:12:45 101 13 100 24.8 123/77(107) NSR 0 (11) 8(A) , No pain 14:16:53 100 13 25.5 139/78(98) NSR 0 (11) 8(A) , No pain 14:21:05 100 16 100 24.8 135/82(101) NSR 0 (11) 8(A) , No pain 14:25:15 94 18 21.8 123/84(107) NSR 0 (11) 9(A) , No pain 14:29:20 97 17 100 21 141/85(103) NSR 0 (11) 9(A) , No pain 14:33:35 95 21 23.3 131/81(98) NSR 0 (11) 9(A) , No pain 14:37:42 94 19 85 24 134/86(104) NSR 0 (11) 9(A) , No pain 14:41:52 87 16 99 24 144/87(108) NSR 0 (11) 9(A) , No pain 14:46:06 98 17 100 24 130/85(111) NSR 0 (11) 9(A) , No pain 14:50:12 96 17 99 24.8 136/94(107) NSR 0 (11) 9(A) , No pain 14:54:20 95 23 96 24.8 142/90(114) NSR 0 (11) 9(A) , No pain 14:58:30 102 25 89 24 126/93(107) NSR 0 (11) 9(A) , No pain 15:02:34 91 23 96 24 137/94(122) NSR 0 (11) 9(A) , No pain 15:06:49 95 26 99 21.8 153/75(115) NSR 0 (11) 9(A) , No pain Medications Time Medication Route Dose Verified Delivered Reason Notes Effe ctiveness by by 13:27:14 Heparin Flush added 2 Donnie Fields used for Bag to bags Maddy Castañeda MD procedure (1000units/500ml field MAYA NS) 13:27:27 Lidocaine 1% added 20ml Donnie Fields for local to vial Maddy Castañeda MD anesthetic field MAYA 13:40:02 Fentanyl I.V. 50 Donnie Gonzalez for mcg Reid Castañeda RN sedation 13:40:40 Versed I.V. 1 mg Donnie Gonzalez for Reid Castañeda RN sedation 13:57:20 Versed I.V. 1 mg Donnie Gonzalez for Reid Castañeda RN sedation 13:57:28 Fentanyl I.V. 50 Donnie Lisa for mcg Reid Castañeda RN sedation 14:05:52 Zofran I.V. 8 mg Donnie Gonzalez for nausea Reid Castañeda RN, MD 14:14:01 0.9% NaCl I.V. 1000 Donnie Gonzalez Per ml Reid Castañeda RN physician MD Procedure Log Time Note 12:08:20 Patient Height : 72 inches 12:08:25 Patient Weight : 185 lbs 12:08:31 Use device set IR Diagnostic 13:18:35 Lisa Mathews RN sent for patient. Start room use. 13:18:45 Time tracking: Regular hours (M-F 7:00 - 5:00) 13:18:51 Plan of Care:Hemodynamics will remain stable., Cardiac rhythm will remain stable., Comfort level will be maintained., Respiratory function will remain adequate., Patient/ family verbilizes understanding of procedure., Procedure tolerated without complication., Recovers from procedure without complications.. 13:18:56 Patient received from CVICU to IR Alert and oriented. Tansferred to table in Supine position. 13:18:59 Signed procedure consent form obtained from patient. 13:19:44 Correct patient and procedure confirmed by team. 13:19:50 H&P Date Dictated: 12/08/2018 Within 30 days and on chart.. 13:19:52 Pre-procedure instructions explained to patient. 13:19:53 Pre-op teaching completed and patient verbalized understanding. 13:19:56 Family in waiting room. 13:20:02 Patient NPO since Midnight. 13:20:11 Patient allergic to Penicillins 13:20:18 Is the patient allergic to Iodine/contrast media? No. 13:20:21 Is patient on blood thinner?No 13:21:38 Patient diabetic? No. 13:21:45 - 13:21:46 ----Pre-sedation anethsthesia assessment.---- 13::52 Previous problem with sedation/anesthesia? No ? 13:21:54 Snore? Yes 13:21:56 Sleep apnea? No 13:21:59 Deviated septum? No 13:22:01 Opens mouth fully? Yes 13:22:03 Sticks out tongue? Yes 13:22:06 Airway obstruction? No ? 13:22:11 Dentures? No ? 13:22:45 IV patent on arrival in left forearm with D5/.45%NaCl at [facility]. 13::19 Pre procedure: left dorsailis pedis pulse Doppler 13::23 Pre procedure: left posterior tibial pulse Doppler 13::22 Vital chart was started 13:27:14 Heparin Flush Bag (1000units/500ml NS) 2 bags added to field was administered by Donnie Castañeda MD; used for procedure; ::27 Lidocaine 1% 20ml vial added to field was administered by Donnie Castañeda MD; for local anesthetic; 13:37:32 - 13:37:35 ECG and BP/O2 sat monitors applied to patient. 13:37:37 Baseline sample Acquired. 13:37:39 Full Disclosure recording started 13:37:41 - 13:39:07 Physician arrived 13:39:08 --------ALL STOP TIME OUT------ 13:39:09 Final Timeout: patient, procedure, and site verified with staff and physician. All members of the team are in agreement. 13:40:02 Fentanyl 50 mcg I.V. was administered by Lisa Mathews RN; for sedation ; 13:40:34 - 13:40:40 Versed 1 mg I.V. was administered by Lisa Mathews RN; for sedation; 13:40:45 Left groin area was prepped with chlora-prep and draped in sterile fashion 13:40:52 Fire Safety Assessment: A--An alcohol-based skin anteseptic being used preoperatively., C--Open oxygen or nitrous oxide is being used. 13:41:08 Procedure started. 13:41:17 Local anesthetic to left femerol artery with Lidocaine 1% by Donnie Castañeda MD.INITIAL ACCESS ONLY 13:45:21 GLIDE CATHETER 5FR COBRA 65cm (CG502) opened to sterile field. 13:45:23 Micropuncture VSI 4FR kit opened to sterile field. 13:45:23 DOC .035 wire (F08686) opened to sterile field. 13:45:24 TUBING Contrast Injection High Pressure (CMZ077R) opened to sterile field. 13:45:25 SHEATH 5FR [place] (EAJ535) opened to sterile field. 13:45:31 - 13:45:37 Arterial access obtained using ultrasound guidance. 13:46:26 GLIDE WIRE ANGLE 180cm (IA4839) opened to sterile field. 13:46:34 TORQUE DEVICE PLASTIC .038 ( TD01) opened to sterile field. 13:57:20 Versed 1 mg I.V. was administered by Lisa Mathews RN; for sedation; 13:57:28 Fentanyl 50 mcg I.V. was administered by Lisa Mathews RN; for sedation ; 14:02:50 Angiography was performed. 14:05:52 Zofran 8 mg I.V. was administered by Lisa Mathews RN; for nausea; 14:12:40 GLIDE WIRE GT DOUBLE ANGLE .018 (RG*FN0007BD) opened to sterile field. 14:13:16 RENEGADE STAIGHT 150CM microcatheter ([id number]) opened to sterile field. 14:14:01 0.9% NaCl 1000 ml I.V. was administered by Lisa Mathews RN; Per physician; 14:23:01 COIL Concerto 4mm x 10cm ([id number]) opened to sterile field. 14:25:44 COIL Concerto 6mm x 20cm ([id number]) opened to sterile field. 14:32:34 TRANSEND STEERABLE wire ([id number]) opened to sterile field. 14:38:05 COIL Concerto 3mm x 8cm ([id number]) opened to sterile field. 14:45:04 COIL Concerto 3mm x 8cm ([id number]) opened to sterile field. 14:47:08 COIL Concerto 6mm x 20cm ([id number]) opened to sterile field. 14:57:24 EXOSEAL 5Fr (EX500) opened to sterile field. 14:57:52 A sheath was inserted into the Femoral artery 14:57:52 Sheath removed intact; hemostasis achieved with Exoseal to the Femoral artery. 14:57:56 Procedure ended.(Physican Out) 14:59:04 Fluoroscopy time 17.60 minutes. 14:59:21 Fluoroscopy dose: 2163 mGy 14:59:21 Flurop Dose total: 2163 14:59:38 Contrast amount:Isovue 300 120ml. 14:59:41 Procedure and supply charges have been captured, reviewed, submitted an d are correct. 15:08:38 Report given to CVICU. 15:08:47 Patient transfered to CVICU with Bed. 15:10:14 Vital chart was stopped Device Usage Item Name Manufacture Quantity Catalog Number Hospital Part Current Min imal Lot# / Charge Number Stock Stock Serial# Code GLIDE Terumo 1 [id number] 5 CATHETER 5FR COBRA 65cm (CG502) Micropuncture VSI VASCULAR 1 7266V 388496 508558 5 VSI 4FR kit SOLUTIONS DOC .035 wire Cook Medical 1 [id number] 500002 783223 5 (H38387) TUBING Merit 1 [id number] 877173 397034 269686 5 Contrast Medical Injection High Pressure (SLM412I) SHEATH 5FR Terumo 1 AAW801 819954 212391 915023 5 [place] (JIQ427) GLIDE WIRE Terumo 1 IQ8220 584991 213260 739803 5 ANGLE 180cm (LS2860) TORQUE DEVICE Rowley 1 TD01 151094 308121 965564 5 PLASTIC .038 Scientific ( TD01) GLIDE WIRE GT Terumo 1 RG*[id number] 118792 663583 5 767518 DOUBLE ANGLE .018 (RG*[id number]) RENEGADE Rowley 1 [id number] 476146 679390 5 STAIGHT 150CM Scientific microcatheter ([id number]) COIL Concerto Medtronic 1 OE-8-92-HELIX 964414 158671 161093 5 [id number] 4mm x 10cm ([id number]) COIL Concerto Medtronic 2 XE-3-49-HELIX 086153 063334 826485 5 [id number] 6mm x 20cm D190101 ([id number]) TRANSEND Rowley 1 [id number] 390348 000485 5 STEERABLE Scientific wire ([id number]) COIL Concerto Medtronic 2 NV-0-4-HELIX 627424 366503 264038 5 Q421104 3mm x 8cm [id number] ([id number]) EXOSEAL 5Fr Cardinal 1 EX500 411182 058495 846027 10 (EX500) Health Signature Audit [place] Stage Time Signature Unsigned Intra-Procedure 12/08/2018 Deja Ovalle 3:10:10 PM RT(R) [facility] [address] [place] [address]
[~2018-12-07 11:44] MED LIST changes: +COLACE100 MG PO; +HYDROCODON-ACE1 EA10 PO
[2018-12-07 12:12] LABS: BASOPHILS 0.3 % (0-2); EOSINOPHILS 6.7 % (0-7); HEMATOCRIT 37.2 % (42.0-54.0); HEMOGLOBIN 12.8 g/dL (13.5-17.5); IMMATURE GRANULOCYTES 0.2 % (0-5); LYMPHOCYTES 22.8 % (15-50); MCH 32.1 pg (26.0-34.0); MCHC 34.4 g/dL (31.0-37.0); MCV 93.2 fL (80.0-100.0); MEAN PLATELET VOLUME 10.1 fL (7.4-10.4); MONOCYTES 9.7 % (2-11); NEUTROPHILS 60.3 % (40-80); RBC 3.99 10x6/uL (4.20-6.10); RDW 12.7 % (11.5-14.5)
[2018-12-07 12:19] LABS: PLATELET COUNT 351 10x3/uL (130-400)
[2018-12-07 12:29] LABS: ALBUMIN 2.9 g/dL (3.4-5.0); ALKALINE PHOSPHATASE 88 U/L (46-116); ALT (SGPT) 23 U/L (10-68); BILIRUBIN - TOTAL 0.36 mg/dL (0.2-1.3); CALC OSMOLALITY 281 mosm/kg (275-300); CARBON DIOXIDE 27.7 mmol/L (21.0-32.0); CHLORIDE - SERUM 102 mmol/L (98-107); CREATININE - SERUM 1.2 mg/dL (0.6-1.3); GLUCOSE 137 mg/dL (74-106); POTASSIUM - SERUM 3.4 mmol/L (3.5-5.1); PROTEIN - SERUM 7.7 g/dL (6.4-8.2); SODIUM 140 mmol/L (136-145); UREA NITROGEN 15 mg/dL (7-18); eGFR NON AFRICAN AMERICAN 69 mL/min (90-120)
[2018-12-07 12:40] LABS: APTT 29.2 SECONDS (22.8-39.4); INR 1.04 (0.85-1.17); PROTIME 13.1 SECONDS (11.6-15.0)
[2018-12-07 12:41] LABS: CREATINE KINASE 27 UL (21-232); MAGNESIUM - SERUM 1.7 mg/dL (1.8-2.4); TROPONIN-I 0.055 ng/mL (0.000-0.060)
[2018-12-07 12:55] LABS: D-DIMER-QUANTITATIVE 3.96 ug/mLFEU (0.20-0.54)
--- NOTE | 2018-12-07 15:05 | NUR ---
CHIARA HELD PER DR. PINK
[2018-12-07 15:34] LABS: CKMB 0.1 U/L (0.0-3.6); CREATINE KINASE 22 UL (21-232)
[2018-12-07 15:49] LABS: TROPONIN-I 0.074 ng/mL (0.000-0.060)
--- NOTE | 2018-12-07 16:05 | NUR ---
SECOND 100CC KE NS COMPLETE AT 1604PM.
--- NOTE | 2018-12-07 17:36 | NUR ---
PATIENTS BP DROPPED TO 72/42, PATIENT PLACED IN TRENDELENBERG POSITION, VERBAL ORDER FROM DR. CROWDER FOR 1 LITER NS KE. PATIENTS BP BACK UP YO 97 SYSTOLIC
--- NOTE | 2018-12-07 17:45 | NUR ---
DILAUDID NOT GIVEN DUE TO HYPOTENSION
--- NOTE | 2018-12-07 18:40 | NUR ---
PT ARRIVED TO UNIT VIA BED FROM ER. SPOUSE AND TWO OTHER FAMILY MEMBERS AT BEDSIDE. PT COMPLAINING OF ABDOMINAL PAIN 01/13. PT SHIVERING. AXILLARY TEMP 93.0. WARM BLANKET AND BEAR HUGGER APPLIED. SKILLED TRADES TEACHER INITIATED AT 0.2 Q 10MIN NO LOCK OUT PER ORDERS.
--- NOTE | 2018-12-07 18:47 | NUR ---
NOTIFIED PT AND FAMILY THAT CARDIOLOGY HAD BEEN CONSULTED AND AWAITING PAGE BACK AND THAT PTS NURSE WAS GETTING HIS PAIN MEDICATION AND VISITIATION HOUR SHEET AND PHONE NUMBERS PROVIDED, PTS VISITOR (NOT ) BEGAN STATING THAT THE "WILL STAY AT BEDSIDE BECAUSE THIS IS A MEDICAL EMERGENCY OR HE NEEDS TO GO SOMEWHERE ELSE" AGAIN REITERATED VISITATION POLICY AND THE WOMAN BEGAN WALKING TOWARDS ME RAISING HER VOISE THAT "NO HIS WILL STAY HERE" STATED I WOULD CALL CHARGE NURSE TO COME SPEAK WITH HER AND SHE THEN FOLLOWED ME OUT OF ROOM YELLING. CHARGE NURSE AND COMMUNICATIONS EQUIPMENT INSTALLER SPOKE WITH PT AND FAMILY
--- NOTE | 2018-12-07 20:00 | NUR ---
PT WITH EYES CLOSED AND CHEST RISING. EASILY AWOKEN TO VERBAL STIMULI. FAMILY AT BEDSIDE. QUESTIONS ANSWERED AND CONCERNS ADDRESSED AT THIS TIME. PT PALE. TAYLOR MADSEN IN USE. PASCUAL PATENT. PT USES END FINDER FORMING DEPARTMENT DILAUDID. FAMILY STATING DESIRE TO HAVE PT TRANSFERRED TO ANOTHER FACILITY AND REQUEST TO SPEAK WITH CHARGE NURSE AND CHARGE NURSE SPOKE WITH THEM.
[2018-12-07 20:32] LABS: HEMATOCRIT 20.7 % (42.0-54.0)
[2018-12-07 20:49] LABS: HEMOGLOBIN 6.9 g/dL (13.5-17.5)
[2018-12-07 21:03] LABS: CKMB 0.5 U/L (0.0-3.6); CREATINE KINASE 29 UL (21-232)
--- NOTE | 2018-12-07 21:12 | NUR ---
DR. CROWDER NOTIFIED OF HGB 6.9 AND STATUS REPORT GIVEN. NEW ORDERS REC'D. WILL CONTACT TRANSFER CENTER PT FAMILY/PATIENT REQUEST.
--- NOTE | 2018-12-07 21:37 | NUR ---
CONSENT FOR BLOOD TRANSFUSION SIGNED BY PER PT REQUEST.
--- NOTE | 2018-12-07 21:45 | NUR ---
Kenrick LUIS SOFTWARE LICENSING EXECUTIVE AT BEDSIDE.
--- NOTE | 2018-12-07 21:58 | NUR ---
SPOKE WITH PATRICIA AT TRANSFER CENTER, STATUS REPORT, VS, IMAGING AND LAB RESULTS GIVEN. NOTIFIED THIS IS A PT/FAMILY REQUEST TO TRANSFER.
[2018-12-07 22:33] LABS: MAGNESIUM - SERUM 1.6 mg/dL (1.8-2.4)
--- NOTE | 2018-12-07 23:28 | NUR ---
MAG LEVEL 1.6 WITH ELECTROLYTE PROTOCOLS FOLLOWED. WILL CONTINUE TO OBSERVE.
--- NOTE | 2018-12-07 23:50 | NUR ---
REASSESSMENT COMPLETED, SEE FLOW SHEET. WILL CONTINUE TO OBSERVE
[2018-12-08] VITALS (28 sets, daily range): BP systolic 89–154; BP diastolic 55–92
--- NOTE | 2018-12-08 00:34 | NUR ---
2ND UNIT BLOOD STARTED. PT TOLERATED WELL. WILL CONTINUE TO OBSERVE
--- NOTE | 2018-12-08 01:30 | NUR ---
PT RESTING WITH EYES CLOSED AND CHEST RISING. EASILY AWOKEN TO VERBAL STIMULI. NO NEEDS NOTED. WILL CONTINUE TO OBSERVE.
[2018-12-08 03:09] LABS: HEMATOCRIT 27.2 % (42.0-54.0); HEMOGLOBIN 9.4 g/dL (13.5-17.5); RBC 3.04 10x6/uL (4.20-6.10); WBC 24.1 10x3/uL (4.8-10.8)
[2018-12-08 03:10] LABS: MCH 30.9 pg (26.0-34.0); MCHC 34.6 g/dL (31.0-37.0); MCV 89.5 fL (80.0-100.0); PLATELET COUNT 270 10x3/uL (130-400); RDW 14.3 % (11.5-14.5)
[2018-12-08 03:28] LABS: LYMPHOCYTES 14 % (15-50); NEUTROPHILS 85 % (40-80); PLATELET ESTIMATE NORMAL
--- NOTE | 2018-12-08 03:35 | NUR ---
REASSESSMENT COMPLETED, SEE FLOW SHEET. WILL CONTINUE TO OBSERVE.
[2018-12-08 03:48] LABS: ALBUMIN 2.3 g/dL (3.4-5.0); ALKALINE PHOSPHATASE 65 U/L (46-116); ALT (SGPT) 28 U/L (10-68); BILIRUBIN - TOTAL 0.58 mg/dL (0.2-1.3); CALCIUM 7.7 mg/dL (8.5-10.1); CARBON DIOXIDE 22.4 mmol/L (21.0-32.0); CHLORIDE - SERUM 106 mmol/L (98-107); CKMB 0.9 U/L (0.0-3.6); CREATINE KINASE 35 UL (21-232); GLUCOSE 128 mg/dL (74-106); PHOSPHOROUS 4.9 mg/dL (2.5-4.9); PROTEIN - SERUM 6.1 g/dL (6.4-8.2); SODIUM 138 mmol/L (136-145)
[2018-12-08 03:56] LABS: CALC OSMOLALITY 282 mosm/kg (275-300); CREATININE - SERUM 1.8 mg/dL (0.6-1.3); MAGNESIUM - SERUM 2.4 mg/dL (1.8-2.4); TROPONIN-I 0.272 ng/mL (0.000-0.060); UREA NITROGEN 26 mg/dL (7-18); eGFR NON AFRICAN AMERICAN 43 mL/min (90-120)
[2018-12-08 03:58] LABS: POTASSIUM - SERUM 6.9 mmol/L (3.5-5.1)
--- NOTE | 2018-12-08 04:05 | NUR ---
AT BEDSIDE, UPDATE GIVEN.
--- NOTE | 2018-12-08 04:12 | NUR ---
AM LABS REPORTED TO Kenrick LUIS APN, K+ 6.9 - NEW ORDERS REC'D.
--- NOTE | 2018-12-08 06:52 | NUR ---
lab unable to draw blood and states that she will send another to reattempt. pt states feeling better. will continue to observe.
--- NOTE | 2018-12-08 07:15 | NUR ---
AWAKES EASILY TO VERBAL STIMULI SKIN WARM AND DRY. 3 INCISIONS ON ABD JOSE E INTACT NO REDNESS OR DRAINAGE. STATES THE DILAUDID STILL TENDER DOES HELP HIS PAIN BUT PATIENT STILL RATES AT A 8. IV PATIENT LEFT AC INFUSING WITH NS AT 125 ML HOUR AND PROTONIX AT 8 MG HOUR. GARNER CATH PATENT. MONITOR ST. ADMITS TO SOME SHORTNESS OF BREATH. USING ABD MUSCLES TO BREATH.
--- NOTE | 2018-12-08 08:25 | NUR ---
FAMILY HERE, HERE VERY HOSTILE, WANTS PATIENT TRANSFERED TO [place], ANY HOSPITAL, UNDERSTANDS [facility] ICU IS FULL AND [facility] WILL NOT HAVE A BED TODAY. STATES THIS IS THE NURSES AND DOCTORS FAULT, SHE DOES NOT WANT HER TO HAVE SURGERY HERE, WANTS TO KNOW WHY THIS IS HAPPENING AND WHAT WE ARE DOING ABOUT IT. TRANSFER CENTER NOTIFIED OF FAMILY REQUEST. DR. CROWDER NOTIFIED OF FAMILY REQUEST.
--- NOTE | 2018-12-08 09:54 | NUR ---
RESTING NO DISTRESS AT BEDSIDE. DENIES ANY CHANGES IN PAIN OR ABD
[2018-12-08 10:30] LABS: HEMATOCRIT 22.5 % (42.0-54.0); HEMOGLOBIN 7.9 g/dL (13.5-17.5)
--- NOTE | 2018-12-08 10:42 | NUR ---
PATIENT VOMITTED MOD AMOUNT LIGHT BROWN LIQUID. ZOFRAN 4 MG IV GIVEN. AT BEDSIDE TALKING WITH DR. MENESES
--- NOTE | 2018-12-08 11:30 | NUR ---
NAUSEA BETTER. ORAL CARE DONE WITH SWABS. PATIENT UNDERSTANDS HE IS NPO
--- NOTE | 2018-12-08 12:00 | NUR ---
LEFT GROIN SHAVED WITH ELECTRIC RAZOR GROIN WASHED WITH HIBCLENS. PATIENT TOLERATED WELL. ALL UNDERCLOTHES AND SOCKS REMOVED
--- NOTE | 2018-12-08 12:11 | NUR ---
DR. WATKINS OFFICE NOTIFIED OF CONSULT.
--- NOTE | 2018-12-08 12:50 | NUR ---
CONSENT GIVEN TO AND PATIENT. PATIENT REQUEST SIGN CONSENT FOR IR. NO QUESTIONS ASKED. FAMILY AT BEDSIDE. CONSENT SIGNED.
--- NOTE | 2018-12-08 13:00 | NUR ---
FIRST UNIT BLOOD STARTED IN RIGHT AC. NO REACTION AT THIS TIME
--- NOTE | 2018-12-08 13:07 | NUR ---
TO IR PER BED FAMILY WITH PATIENT
--- NOTE | 2018-12-08 15:30 | NUR ---
RETURNED TO ROOM FROM IR. LEFT GROIN DRESSING DRY AND INTACT. LEGS WARM. PEDAL PULSES PALABLE. VOMITTED WHILE IN IR. BATH GIVEN WITH LINEN CHANGE. PATIENT AWAKE AND ALERT. SKIN COOL AND DRY. FAMILY HERE UPDATE GIVEN. DR. KNOX HERE
--- NOTE | 2018-12-08 15:49 | NUR ---
2ND UNIT OF BLOOD INFUSING FROM IR. PROTONIX INFUSING AT 8 MG HOUR, NS AT 125 ML HOUR . DILAUDID UTILITY SALES AND SERVICE MANAGER BUTTON GIVEN TO PATIENT. PAIN BETTER AT 7. ICE CHIPS PROVIDED AT PATIENT REQUEST
--- NOTE | 2018-12-08 17:00 | NUR ---
2 UNITS OF BLOOD GIVEN, FFP INFUSING WIHTOUT REACTION AT THIS TIME. PATIENT TAKING ICE CHIPS, NAPPING AT INTERVALS. LEFT GROIN DRESSING DRY AND INTACT. PEDAL PULSES PALABLE. ICE PACK ON LEFT GROIN. AT BEDSIDE
[2018-12-08 17:40] LABS: APPEARANCE CLEAR (CLEAR); BILIRUBIN NEGATIVE (NEGATIVE); COLOR YELLOW (YELLOW); GLUCOSE NEGATIVE (NEGATIVE); KETONE NEGATIVE (NEGATIVE); NITRITE NEGATIVE (NEGATIVE); PROTEIN TRACE mg/dL (NEGATIVE); UROBILINOGEN NORMAL (NORMAL)
[2018-12-08 17:42] LABS: BACTERIA FEW /hpf (NONE SEEN); RED CELLS - URINE 0-5 /hpf (0-5); WHITE CELLS - URINE 0-5 /hpf (0-5)
[2018-12-08 18:37] LABS: BASOPHILS 0.3 % (0-2); EOSINOPHILS 0 % (0-7); HEMATOCRIT 26.8 % (42.0-54.0); HEMOGLOBIN 8.9 g/dL (13.5-17.5); IMMATURE GRANULOCYTES 0.5 % (0-5); LYMPHOCYTES 7.9 % (15-50); MCH 29.5 pg (26.0-34.0); MCHC 33.2 g/dL (31.0-37.0); MCV 88.7 fL (80.0-100.0); MEAN PLATELET VOLUME 10.3 fL (7.4-10.4); MONOCYTES 12.1 % (2-11); NEUTROPHILS 79.2 % (40-80); PLATELET COUNT 227 10x3/uL (130-400); RBC 3.02 10x6/uL (4.20-6.10); WBC 28.8 10x3/uL (4.8-10.8)
--- NOTE | 2018-12-08 18:45 | NUR ---
PLATELETS INFUSED. ZOFRAN GIVEN FOR NAUSEA THIS PM. PATIENT WANTING SOMETHING TO EAT. REINFORCED HE IS NAUSEA AND HAS VOMITTED. NOT IN HIS BEST INTEREST TO EAT FOOD AT THIS TIME. VERBALIZED UNDERSTANDING. NAUSEA IMPROVED AFTER ZOFRAN.
[2018-12-08 18:47] LABS: APTT 25.3 SECONDS (22.8-39.4); INR 1.15 (0.85-1.17); PROTIME 14.2 SECONDS (11.6-15.0)
--- NOTE | 2018-12-08 19:00 | NUR ---
BEDSIDE REPORT AND SHIFT ASSESSMENT COMPLETE. VSS, NO SIGNS OF ACUTE DISTRESS NOTED. ABDOMEN FIRM, INCISIONS WNL. C/O ABD PAIN 11/13. INSTRUCTED TO USE BLOCK CAPTAIN WHEN NEEDED. REQUESTED FOOD, NPO ORDER. WILL FOLLOW UP ON THIS. DENIES OTHER NEEDS AT THIS TIME. WILL CONTINUE TO MONITOR.
--- NOTE | 2018-12-08 19:30 | NUR ---
DR. CROWDER NOTIFIED OF H&h RESULTS. ORDERS RECEIVED TO GIVE ONE MORE UNIT OF BLOOD
[2018-12-08 19:55] LABS: ANION GAP 15.3 mmol/L (8-16); CALCIUM 7.9 mg/dL (8.5-10.1); CARBON DIOXIDE 20.7 mmol/L (21.0-32.0); CREATININE - SERUM 2.1 mg/dL (0.6-1.3)
--- NOTE | 2018-12-08 20:45 | NUR ---
SPOKE WITH DR WATKINS, UPDATE GIVEN. NO NEW ORDERS RECEIVED.
--- NOTE | 2018-12-08 20:49 | NUR ---
SPOKE WITH DR CROWDER, UPDATE GIVEN. DOES NOT WANT TO ADVANCE DIET YET. WILL CONTINUE TO MONITOR.
--- NOTE | 2018-12-08 21:00 | NUR ---
PT REQUESTING HOME MED, COLACE. INSTRUCTED PT THAT COLACE HAS NOT BEEN ORDERED AND I WILL PASS IT ALONG IN AM SHIFT REPORT TO ADDRESS TO MD. VSS, NO SIGNS OF ACUTE DISTRESS NOTED. WILL CONTINUE TO MONITOR.
--- NOTE | 2018-12-08 23:00 | NUR ---
REASSESSMENT COMPLETE. ICE PACK TO L GROIN, ABD FIRM. IR SITE SOFT, NON TENDER. DENIES NEEDS AT THIS TIME. WILL CONTINUE TO MONITOR.
[2018-12-09] VITALS (28 sets, daily range): BP systolic 118–152; BP diastolic 63–94; Ht 182.9 cm; Wt 88.9 kg
--- NOTE | 2018-12-09 00:15 | NUR ---
LAB CALLED TO DRAW ROUTINE LABS.
[2018-12-09 00:30] LABS: HEMATOCRIT 22.7 % (42.0-54.0); HEMOGLOBIN 7.9 g/dL (13.5-17.5)
--- NOTE | 2018-12-09 00:44 | NUR ---
SPOKE WITH DR LANGFORD, UPDATE GIVEN. NEW ORDERS FOR 1 UNIT OF PRBC, RECHECK LABS IN AM.
--- NOTE | 2018-12-09 01:00 | NUR ---
CALLED LAB AND NOTIFIED THEM OF BLOOD ORDER, TAYLOR SAID SHE WOULD CALL WHEN IT IS READY.
--- NOTE | 2018-12-09 01:45 | NUR ---
PT C/O BLOATING IN ABDOMEN. ABD FIRM, DOES NOT APPEAR ANY MORE FIRM THAN EARLIER IN THE SHIFT. C/O NAUSEA, PRN ZOFRAN ADMINISTERED PER MAR. WILL CONTINUE TO MONITOR.
--- NOTE | 2018-12-09 02:30 | NUR ---
1 UNIT OF PRBC INITIATED.
--- NOTE | 2018-12-09 03:00 | NUR ---
REASSESSMENT COMPLETE. PRBC INFUSING TO L AC. PT STATES RELIEF FROM ZOFRAN, ICE PACK AND COLD RAG TO ABD HELPS EASE PAIN. CALL LIGHT IN REACH, WILL CONTINUE TO MONITOR.
--- NOTE | 2018-12-09 05:25 | NUR ---
BLOOD TRANSFUSION COMPLETE. LAB NOTIFIED TO COME DRAW AM LABS AT 0615.
--- NOTE | 2018-12-09 06:30 | NUR ---
CHG BATH, GARNER CARE, LINEN CHANGE COMPLETE. VSS, NO SIGNS OF ACUTE DISTRESS NOTED. INFORMED PT HE IS NPO UNTIL AFTER TEST TODAY, HE SAID OKAY.
--- NOTE | 2018-12-09 07:15 | NUR ---
REPORT RECEIVED. PT LAYING IN BED. AT BEDSIDE. ABD DISTENDED AND TENDER. DR CROWDER AWARE. PT HAS IVS IN LEFT AC AND RIGHT AC. HE HAS NS, PROTONIX, AND A MINE DEPUTY DILAUDID INFUSING. HE HAS INCISIONS TO ABD AND A PUNCTURE SITE TO LEFT GROIN. HE HAS A GARNER. PT IS HAVING AN UPPER GI SERIES DONE TODAY. VSS. NO OTHER NEEDS AT THIS TIME. PT CURRENTLY NPO.
[2018-12-09 07:23] LABS: HEMATOCRIT 23.3 % (42.0-54.0); MCH 29.2 pg (26.0-34.0); MCHC 34.3 g/dL (31.0-37.0); MEAN PLATELET VOLUME 9.9 fL (7.4-10.4); PLATELET COUNT 259 10x3/uL (130-400); RBC 2.74 10x6/uL (4.20-6.10); RDW 16.6 % (11.5-14.5); WBC 22.8 10x3/uL (4.8-10.8)
[2018-12-09 07:35] LABS: APTT 30.1 SECONDS (22.8-39.4); INR 1.21 (0.85-1.17); PROTIME 14.8 SECONDS (11.6-15.0)
[2018-12-09 07:46] LABS: ALBUMIN 2.4 g/dL (3.4-5.0); BILIRUBIN - TOTAL 0.48 mg/dL (0.2-1.3); CALCIUM 7.6 mg/dL (8.5-10.1); CARBON DIOXIDE 23.7 mmol/L (21.0-32.0); CREATININE - SERUM 1.8 mg/dL (0.6-1.3); PROTEIN - SERUM 6.2 g/dL (6.4-8.2)
[2018-12-09 07:49] LABS: ANION GAP 13.4 mmol/L (8-16); POTASSIUM - SERUM 4.1 mmol/L (3.5-5.1)
--- NOTE | 2018-12-09 09:04 | NUR ---
RADIOLOGY UP TO TAKE PT FOR UPPER GI SERIES. TRYING TO GET CLARIFICATION ABOUT THE CONTRAST USE SINCE PT ONLY HAS 1 KIDNEY. WAS ASKED TO EMPTY GARNER. 350ML OF CLEAR, YELLOW URINE EMPTIED.
[2018-12-09 09:26] LABS: LYMPHOCYTES 8 % (15-50); MONOCYTES 17 % (2-11); NEUTROPHILS 75 % (40-80); PLATELET ESTIMATE NORMAL; POLYCHROMASIA OCC; ROULEAUX OCC
--- NOTE | 2018-12-09 10:36 | NUR ---
UPPER GI SERIES CANCELLED BY DR LANGFORD D/T CONTRAST AND PT HAVING 1 KIDNEY.
--- NOTE | 2018-12-09 12:31 | NUR ---
PT HAD POPCICLE AND SPRITE. TOLERATED WELL. PER DR CROWDER'S NOTE, LETTING PT HAVE CLEAR LIQUIDS. WILL FIND OUT IF HE CAN ADVANCE TOLERATED FOR THIS EVENING.
--- NOTE | 2018-12-09 14:41 | NUR ---
DR WATKINS ROUNDING AND WANTS LABS RECHECKED.
--- NOTE | 2018-12-09 16:19 | NUR ---
SPOKE WITH DR LANGFORD REGARDING KUB. STATED TO KEEP PT NPO WITH ICE CHIPS. HE ALSO STATED TO NOT START BACK ON STOOL SOFTENER YET. WILL PASS THE MESSAGE.
[2018-12-09 16:21] LABS: RBC 2.47 10x6/uL (4.20-6.10); WBC 24.1 10x3/uL (4.8-10.8)
[2018-12-09 16:24] LABS: HEMATOCRIT 21.1 % (42.0-54.0); HEMOGLOBIN 7.3 g/dL (13.5-17.5); MCH 29.6 pg (26.0-34.0); MCHC 34.6 g/dL (31.0-37.0); MCV 85.4 fL (80.0-100.0); MEAN PLATELET VOLUME 9.8 fL (7.4-10.4); PLATELET COUNT 252 10x3/uL (130-400); RDW 16.9 % (11.5-14.5)
[2018-12-09 16:33] LABS: ANION GAP 16.2 mmol/L (8-16); CALCIUM 8.1 mg/dL (8.5-10.1); CARBON DIOXIDE 22.7 mmol/L (21.0-32.0)
[2018-12-09 16:34] LABS: CREATININE - SERUM 1.3 mg/dL (0.6-1.3)
[2018-12-09 16:35] LABS: POTASSIUM - SERUM 4.9 mmol/L (3.5-5.1)
[2018-12-09 16:43] LABS: LYMPHOCYTES 12 % (15-50); MONOCYTES 2 % (2-11); NEUTROPHILS 83 % (40-80)
[2018-12-09 16:44] LABS: PLATELET ESTIMATE NORMAL
[2018-12-09 16:45] LABS: TARGET CELLS OCC
--- NOTE | 2018-12-09 16:50 | MORECARE ---
CASE MANAGEMENT DISCHARGE SUMMARY PATIENT: MELY VIGIL UNIT: [id number] ADM DATE: 12/07/18 AGE: 47 : 68 SEX: M ROOM/BED: D[facility] AUTHOR: EDELMIRA HERZOG PHYSICIAN: REFERRING PHYSICIAN: DUNCAN CROWDER MD DATE OF SERVICE: 12/09/18 Discharge Plan Patient Name: MELY VIGIL Facility: [facility]:[place] : 1970 Planned Disposition: Anticipated Discharge Date: Discharge Date: Expected LOS: Initial Reviewer: [email or web address] Initial Review Date: 12/09/2018 Generated: 12/09/18 5:50 pm DCP- Discharge Planning Updated by [email or web address]: Hillary Salgado on 12/08/18 6:[address] CM was notified this am that patient's family was requesting for transfer to [facility] in . Lu RN explained to that [facility] had denied patient d/t lack of bed availability. Lu stated they had contacted transfer center and that they had called back requesting updated clinicals. CM faxed request to transfer center. CM was later notified [address] Crowder had spoke to transfer center and to place transfer on hold. (possibly d/t patient going to for procedure) CM will continue to follow and assist as needed with discharge planning / needs. DCPIA - Discharge Planning Initial Assessment Updated by [email or web address]: Vi Sheldon on 12/09/18 4:47 pm * Is the patient Alert and Oriented? Yes * PCP NONE * Pharmacy [facility] [address] * Preadmission Environment Home with Family * ADLs Independent * Equipment None * List name and contact numbers for known caregivers / representatives who currently or will assist patient after discharge: SHABBIR, , * Additional services required to return to the preadmission environment? No * Can the patient safely return to the preadmission environment? Yes * Has this patient been hospitalized within the prior 30 days at any hospital? Yes Patient Name: MELY VIGIL Page [phone] at 1650 All edits/amendments must be made on the electronic document DICTATION DATE: 12/09/181649 HEALTH PLAN ADVISOR: PADMINI 12/09/181649 RPT#: [id number] DC DATE: STATUS: ADM IN [facility] [address] [place] [address] END OF REPORT
--- NOTE | 2018-12-09 16:55 | NUR ---
SPOKE WITH DR WATKINS REGARDING PT'S LABS. CHEMISTRY IS OKAY. ORDERED 2 UNITS OF PRBC FOR LOW H AND H. FAMILY NOT HAPPY WITH BEING HERE. STATED THAT DR SILVERMAN TOLD THEM THAT THEY SHOULD KNOW IF THE COILS IN THE ABD STOPPED THE BLEEDING BY NOW. CHARGE NURSE SPOKE WITH THEM. UPDATED THEM ON NEW ORDERS. WILL CONTINUE TO MONITOR.
--- NOTE | 2018-12-09 16:55 | NUR ---
SPOKE WITH THE PT AND HIS . PT UPSET ABOUT DOCTORS AND RECIEVING MORE BLOOD AND REQUESTED TO BE TRANSFERED TO ANOTHER HOSPITAL. EXPLAINED BENIFITS AND RISK OF TRANSFREING TO ANOTHER HOSPTIAL. PT AGREED TO STAY AT THIS HOSPITAL AND TO RECIEVE [address] WATKINS.
--- NOTE | 2018-12-09 18:14 | NUR ---
DR MORRIS PAGED REGARDING THE PT WANTING TO SPEAK TO A SURGEON ABOUT HIS STAY. DR MORRIS PAGED. DR MORRIS STATED THAT HE WILL SEE THE PT IN THE MORNING.
--- NOTE | 2018-12-09 19:16 | NUR ---
DR MENESES ROUNDED ON PT. PT'S AND DR MENESES STARTED ARGUING. DR MENESES STATED THE SPLEEN IS NOT BLEEDING, THAT THE COILS ARE IN PLACE. HE THINKS THAT GI NEEDS TO BE CONSULTED AND FOR THE PT TO GET A COLONOSCOPY. THE STILL WANTS TO TRANSFER PT. PT SAID HE WAS OKAY WITH FURTHER TESTING WHILE WAITING ON TRANSFER. 1ST UNIT OF BLOOD INITIATED.
--- NOTE | 2018-12-09 19:20 | NUR ---
PT REQUESTING TO BE TRANSFERED TO [place]. SAID "THIS HOSPITAL SHOULD HAVE A GI DOCTOR CIO AND WE WANT THEM TO SEND US TO ANOTHER HOSPITAL, WE WILL NOT BE SIGNING AMA PAPERS." PT SAID "I WANT TO GO NOW".
--- NOTE | 2018-12-09 19:25 | NUR ---
CONSULTED GI, CALLED OFFICE AND WAS TOLD BY MEGHAN THAT THEY DO NOT HAVE ANYBODY FINANCIAL SALES MANAGER AND I SHOULD PAGE THE HOSPITALIST FINANCIAL SALES MANAGER.
--- NOTE | 2018-12-09 19:33 | NUR ---
MEEK SCANLON APN PAGED FOR THE [facility].
--- NOTE | 2018-12-09 19:55 | NUR ---
SPOKE WITH DR LANGFORD, UPDATE GIVEN. PRIMITIVO SUGGESTS PLACING NGT TO RELIEVE SOME OF THE PRESSURE/BLOATING IF THE PT IS OK WITH THAT.
--- NOTE | 2018-12-09 20:15 | NUR ---
SPOKE WITH PT AND FAMILY, UPDATED THEM ON WHAT DR LANGFORD SUGGESTED. THEY ARE OK WITH STAYING THE NIGHT AND PLACING AN NGT. THEY ARE FRUSTRATED ABOUT THE CARE THEY ARE RECEIVING HERE. STATED "HE ISN'T GETTING ANY BETTER AND THE DOCTORS DON'T KNOW WHAT IS GOING ON" I EXPLAINED THE BENEFITS OF AN NGT, WILL CONTINUE WITH THE PLAN OF CARE.
--- NOTE | 2018-12-09 21:10 | NUR ---
PRBC INFUSION COMPLETE, WILL GET LABS IN AN HOUR. VSS, NO SIGNS OF ACUTE DISTRESS NOTED. DENIES ANY NEEDS AT THIS TIME. WILL CONTINUE TO MONITOR.
--- NOTE | 2018-12-09 22:15 | NUR ---
CALLED LAB TO COME DRAW H&H, SPOKE WITH GIANNI.
--- NOTE | 2018-12-09 22:50 | NUR ---
NGT PLACEMENT BY LAINE TELLES RN VERIFIED BY AIR BOLUS X 2 RN.
[2018-12-09 22:59] LABS: HEMATOCRIT 22.9 % (42.0-54.0); HEMOGLOBIN 7.8 g/dL (13.5-17.5)
--- NOTE | 2018-12-09 23:25 | NUR ---
PAGED DR ALNGFORD, UPDATE GIVEN. WILL CONTINUE WITH PLAN OF CARE. PT REQUESTING ICE CHIPS, I EXPLAINED THAT HE COULD NOT HAVE ANY.
[2018-12-10] VITALS (7 sets, daily range): BP systolic 118–141; BP diastolic 72–85
--- NOTE | 2018-12-10 01:00 | NUR ---
PT RESTING QUIETY, STATES HE DOES NOT FEEL ANY BETTER SINCE THE NGT INSERTION. I EXPLAINED THAT RELIEF WOULDN'T COME INSTANTLY, HE SAID OKAY. VSS, NO SIGNS OF ACUTE DISTRESS NOTED. WILL CONTINUE TO MONITOR.
--- NOTE | 2018-12-10 03:00 | NUR ---
REASSESSMENT COMPLETE. 16FR NGT TO LOW INTERMITTENT SUCTION. VSS, NO SIGNS OF ACUTE DISTRESS NOTED. AT BEDSIDE SLEEPING. CALL LIGHT IN REACH, WILL CONTINUE TO MONITOR.
--- NOTE | 2018-12-10 04:40 | NUR ---
02 SAT 85 ON RA, PUT ON 2L NC O2 SAT 94. PT C/O BURNING IN THROAT AND MOUTH, REQUESTING THAT NGT BE TAKEN OUT. I EXPLAINED THAT IT IS GOING TO BE UNCOMFORTABLE AND I CANT TAKE IT OUT JUST BECAUSE OF THAT REASON.
--- NOTE | 2018-12-10 05:15 | NUR ---
MEDS GIVEN PER MAR. PT ASKED IF I COULD TAKE THE NGT OUT AT 0700, I EXPLAINED YET AGAIN THE BENEFITS OF HAVING IT. I TOLD HIM WE WILL SEE HOW IT GOES AND SEE WHAT THE MD SAYS WHEN THEY ROUND IN THE AM.
[2018-12-10 06:27] LABS: ANION GAP 11.2 mmol/L (8-16); CALCIUM 8.1 mg/dL (8.5-10.1); CARBON DIOXIDE 26.5 mmol/L (21.0-32.0); CREATININE - SERUM 1.2 mg/dL (0.6-1.3); POTASSIUM - SERUM 4.7 mmol/L (3.5-5.1)
--- NOTE | 2018-12-10 06:40 | NUR ---
PT IRRITABLE, REQUESTING NGT TO BE TAKEN OUT AND TRANSFERED TO ANOTHER HOSPITAL. I TRIED EXPLAINING THAT WE SHOULD LEAVE THE NGT IN AND HE SAID "THERE IS NO BLOOD COMING OUT AND THAT IS WHAT WE ARE LOOKING FOR TAKE THIS THING OUT AND I WANT OUT OF HERE" I TOLD HIM I WILL SEE WHAT I CAN DO AND PASS THE MESSAGE ALONG IN AM REPORT. HE SAID "YOU ARENT HELPING ME I WANT OUT OF THIS HOSPITAL."
--- NOTE | 2018-12-10 07:00 | NUR ---
DR. LANGFORD NOTIFIED OF PT WANTING TO LEAVE "NOW" AND DEMANDING IVS AND NGT BE REMOVED. HE TOLD ME TO TELL FAMILY HE IS CLOSE AND WILL BE IN SOON - I DID SO, AND PT RESPONDED "WE ARE LEAVING, WE ARE NOT SIGNING ANY PAPERS, THEY SHOULD HAVE ALREADY BEEN HERE, YOU DONT HAVE A GI DOCTOR OR A NEUROLOGIST".
--- NOTE | 2018-12-10 07:10 | NUR ---
CHARGE NURSE IN ROOM, PT YELLING PROFANITY AT STAFF EVEN STAFF IS COOPERATING, 2 IVS REMOVED INTACT AND DSGS PLACED. NGT REMOVED WITHOUT ANY ADVERSE S/S. PT REFUSED GARNER REMOVAL, PT CAME IN HOSPITAL WITH GARNER S/P NEPHRECTOMY 1 WEEK AGO. PT ASSISTED WITH GETTING OWN CLOTHES ON BY , THEN HE LEFT WITH INDEPENDENTLY. STATED "WE ARE GOING TO [facility] AND MAKE SURE THE [facility] DOCTORS KNOW IT, AND WE ARE NOT SIGNING ANY PAPERS"
--- NOTE | 2018-12-10 07:12 | NUR ---
DR. LANGFORD HERE, NOTIFIED THAT PT AND HAD JUST LEFT.
[2018-12-10 07:25] LABS: HEMATOCRIT 21.2 % (42.0-54.0); MCH 29.6 pg (26.0-34.0); MCHC 34.4 g/dL (31.0-37.0); MCV 85.8 fL (80.0-100.0); MEAN PLATELET VOLUME 10.1 fL (7.4-10.4); PLATELET COUNT 254 10x3/uL (130-400); RBC 2.47 10x6/uL (4.20-6.10); RDW 16.4 % (11.5-14.5)
[2018-12-10 07:26] LABS: HEMOGLOBIN 7.3 g/dL (13.5-17.5)
[2018-12-10 08:21] LABS: EOSINOPHILS 1 % (0-7); LYMPHOCYTES 12 % (15-50); MONOCYTES 18 % (2-11); NEUTROPHILS 69 % (40-80); PLATELET ESTIMATE NORMAL
--- NOTE | 2018-12-10 17:03 | MORECARE ---
CASE MANAGEMENT DISCHARGE SUMMARY PATIENT: MELY VIGIL UNIT: [id number] ADM DATE: 12/07/18 AGE: 47 : 68 SEX: M ROOM/BED: D.[facility] AUTHOR: ROSENDADOC PHYSICIAN: REFERRING PHYSICIAN: DUNCAN CROWDER MD DATE OF SERVICE: 12/10/18 Discharge Plan Patient Name: MELY VIGIL Facility: [facility]:[place] : 1970 Planned Disposition: Anticipated Discharge Date: Discharge Date: 12/10/2018 Expected LOS: Initial Reviewer: [email or web address] Initial Review Date: 12/09/2018 Generated: 12/10/18 6:03 pm Comments DCP- Discharge Planning Updated by [email or web address]: Vi Sheldon on 12/09/18 3:[address] Patient Name: MELY VIGIL Admission Status: ER Accout number: [id number] Admission Date: 12-07-2018 : 1970 Admission Diagnosis: Attending: DUNCAN CROWDER Current LOS: 2 Anticipated DC Date: Planned Disposition: Primary Insurance: [employer] Discharge Planning Comments: CM MET WITH PATIENT AND HIS ABOUT DC PLANNING/NEEDS. STATES PLANS TO DC TO HOME WITH . STATES NO NEEDS. I SPOKE WITH HIM ABOUT HH AND REHAB, STATES PLANS TO DC TO HOME. CM WILL FOLLOW AND ASSIST. Corporate Real Estate Manager: Vi Sheldon DCP- Discharge Planning Updated by [id number]: Hillary Salgado on 12/08/18 6:[address] CM was notified this am that patient's family was requesting for transfer to [facility] in . Lu RN explained to CM that [facility] had denied patient d/t lack of bed availability. Lu stated they had contacted transfer center and that they had called back requesting updated clinicals. CM faxed request to transfer center. CM was later notified [phone] Crowder had spoke to transfer center and to place transfer on hold. (possibly d/t patient going to for procedure) CM will continue to follow and assist as needed with discharge planning / needs. DCPIA - Discharge Planning Initial Assessment Updated by [id number]: Vi Sheldon on 12/09/18 4:47 pm * Is the patient Alert and Oriented? Yes * PCP NONE * Pharmacy [facility] [address] * Preadmission Environment Home with Family * ADLs Independent * Equipment None * List name and contact numbers for known caregivers / representatives who currently or will assist patient after discharge: SHWETHA SHEA, * Additional services required to return to the preadmission environment? No * Can the patient safely return to the preadmission environment? Yes * Has this patient been hospitalized within the prior 30 days at any hospital? Yes Last DP export: 12/09/18 3:50 pm Patient Name: MELY VIGIL Page [phone] at 1703 All edits/amendments must be made on the electronic document DICTATION DATE: 12/10/181702 OWNER OPERATOR: PADMINI 12/10/181702 RPT#: [id number] DC DATE:12/10/18 STATUS: DIS IN [facility] [address] [place] [address] END OF REPORT
--- NOTE | 2018-12-13 10:51 | PN ---
PATIENT:MELY VIGIL MEDICAL RECORD: [id number] LOCATION:SUMEET UMANA0 ADMISSION DATE: 12/07/18 PROGRESS NOTE DATE OF SERVICE: 12/08/2018 SUBJECTIVE: Last evening, the patient and his were adamant that they be transferred to any Hospital in [place]. I asked them to tell us the name of a physician and the hospital that they would like him transferred to, so we could see if we can make that happen through the transfer team. They told us that that was ridiculous and it was our job to find some place to send him. Anyhow, it was not until this morning that I got a call from the transfer team that [facility] would be unable to take him, but maybe [facility] could. I told the transfer team that I was going to talk to the patient and his . Last night, he had had a significant hematocrit drop. His hematocrit was around 37 and then he had 3 liters of crystalloid at least in the ER. This should have brought his hematocrit down by dilution to 28 and then he probably bled about 2 units of blood into the spleen, so that would have brought him down to perhaps around 22, which is not too far away from where he was. I personally reviewed the CT images. I personally reviewed the CT report. There is some free fluid in the abdomen. I think that it is likely some blood. Largely; however, it appears that the spleen is containing the bleeding. I have no idea why he would have started bleeding 7 days after the procedure. He states adamantly that he has not suffered any trauma and has not restarted his Plavix. The patient has a tender abdomen. He does have some free air and it be a normal amount of free air, 7 days out after a mini laparotomy or it may represent a leaking viscus. The patient has been afebrile. I spoke with the patient and his . Dr. Gonzalez was there as well. We outlined several possible options. One would be laparoscopic splenectomy and laparoscopic evaluation of the abdomen, another would be a laparotomy, another would be some splenic embolization, and another would be transfer to a hospital in [place]. They opted for splenic embolization. I personally reviewed the plan with Dr. Castañeda. The patient underwent splenic embolization. I have reviewed those angiographic films. Hopefully, this will allow his blood pressure to stabilize as he did have another hematocrit drop this morning and this required blood products. TRANSINT:[id number] Voice Confirmation ID: [id number] DOCUMENT ID: [id number] DUNCAN CROWDER MD at 1051 CC: [id number] DICTATION DATE: 12/08/181954 HUMAN RESOURCES ADMIN: 12/09/18 1054 DIS IN 12/10/18 [place] [id number] [place] [id number]
--- NOTE | 2018-12-15 14:31 | CN ---
PATIENT NAME:MELY VIGIL MEDICAL RECORD: [id number] : [birth year] LOCATION:RamezCVID.CV02 ADMIT DATE: 12/07/18 ACCOUNT: [id number] CONSULTING PHYSICIAN: MARTHA CLEMENS MD REFERRING PHYSICIAN: DUNCAN CROWDER MD DATE OF CONSULTATION: 12/07/2018 DIAGNOSES: 1. Non-Q-wave myocardial infarction. 2. Coronary artery disease. 3. Recent laparoscopic nephrectomy. 4. Splenic hematoma. 5. Anemia. 6. Peripheral vascular disease. 7. Status post femoral popliteal bypass surgery. 8. Hypotension. HISTORY OF PRESENT ILLNESS: This is a gentleman who underwent a laparoscopic nephrectomy, recently. He presents with acute abdominal pain as well as acute chest pain. Troponin is elevated. EKG is with no acute ST-T abnormalities. He was found to be anemic, found to have a splenic hematoma requiring transfusion with this. He has been hypotensive with systolic blood pressure in the 90-100 range, tachycardic, heart rate in the 100-110 range. No dysrhythmias, sinus tachycardia. PHYSICAL EXAMINATION: CONSTITUTIONAL/GENERAL APPEARANCE: Well nourished, well developed, appears stated age. EYES: Lids and conjunctivae noninjected. No discharge. No pallor. ENT: Lips within normal limit. No cyanosis. No pallor. NECK: Carotid arteries, bilateral normal upstroke. No bruits. No thrills. No jugular venous pressure or distention. CERVICAL LYMPH NODES: Nontender. Nonenlarged. THYROID: Not enlarged. No nodules. CARDIOVASCULAR: Precordial exam, nondisplaced. No heaves or pericardial thrills. Rate and rhythm, regular. Heart sounds, normal S1, normal S2. No S3, no gallop, no rub. Systolic murmur, not heard. Diastolic murmur, not heard. RESPIRATORY: Respiratory effort, unlabored. Normal curvature. No thoracic deformity. No chest wall tenderness. Percussion, resonant. Auscultation, clear. No wheezes, no rales, no rhonchi. ABDOMEN: Soft, nondistended, nontender. No abdominal pain, no vomiting and normal appetite. MUSCULOSKELETAL: No joint tenderness, normal gait, normal tone. SKIN: Warm and dry. OVERALL IMPRESSION: Non-Q-wave myocardial infarction in light of active bleeding and splenic hematoma requiring transfusion. At this time, his hemoglobin was 6.9. He continues to require transfusions. This precludes any real treatment from a cardiac standpoint as we cannot anticoagulate him as his bleeding is more life threatening than his non-Q-wave myocardial infarction. Most likely, he does have hemodynamically significant coronary artery disease. I could not treat medically due to the hypotension when he stabilizes from bleeding and intra-abdominal standpoint, would definitely suggest cardiac catheterization, but at this time, no cardiac treatment can be undertaken. CONSULT REPORT [id number] MELY VIGIL TRANSINT:[id number] Voice Confirmation ID: [id number] DOCUMENT ID: [id number] MARTHA CLEMENS MD at 1431 CC: [id number] DICTATION DATE: 12/08/18312 FABRICATING MACHINE OPERATOR: 12/08/18 034 DIS IN 12/10/18 [place] [id number] [place] [address]
--- NOTE | 2018-12-15 14:31 | EC ---
PATIENT:MELY VIGIL DATE OF SERVICE: 12/07/18 SEX: M MEDICAL RECORD: [id number] DATE OF : [birth year] LOCATION:[place] [address] AGE OF PATIENT: 47 ADMISSION DATE: 12/07/18 REFERRING PHYSICIAN: INTERPRETING PHYSICIAN: MARTHA GÓMEZ MD ECHOCARDIOGRAM REPORT ECHO CHARGES 4 ECHO COMPLETE Date: 12/08/18 CLINICAL DIAGNOSIS: MS ECHOCARDIOGRAPHIC MEASUREMENTS (adult normal given) AC root (d.<3.7cm) 3.2 cm LV Septum d (<1.2 cm> 1.3 cm Valve Excursion 1.4 cm LV Septum (systole) 1.5 cm Left Atria (s.<4.0cm> 3.8 cm LVPW d(<1.2cm) 1.6 cm RV (d.<2.3cm) 3.4 cm LVPW (sytole) 1.9 cm LV diastole(<5.6CM) 5.2 cm MV E-F(>70mm/sec) cm LV systole 3.6 cm LVOT Diameter 1.9 cm MV exc.(>10mm) 1.5 cm Est.ejection fraction (50-75%) % DOPPLER: LVIT cm/sec A 106 cm/sec E 66.0 cm/sec LA cm/sec RVSP 26 mmHg LVOT 116 cm/sec AOP1/2T m/s Asc. Ao 153 cm/sec RVOT cm/sec RA cm/sec PA 154 cm/sec AV Gradient Peak 9.41 mmHg AV Mean 6.03 mmHg AV Area 2.0 cm MV Gradient Peak 5.12 mmHg MV Mean 1.99 mmHg MV Area cm COMMENTS: Glaze Carrier: Roderick CONTRERAS Dress Shoe Inspector: 1 Dr. Gómez TAPE# PACS Pericardial Effusion N DATE OF SERVICE: 12/08/2018 PROCEDURE: Echocardiogram. FINDINGS: 1. Left ventricular chamber size is within normal limits. Left ventricular systolic function is normal at 60%. 2. Left atrium, right atrium, and right ventricular chamber sizes are within normal limits. 3. Valvular structures have normal structure and motion. ECHOCARDIOGRAM REPORT [id number] MELY VIGIL 4. Doppler interrogation reveals mild tricuspid regurgitation, no other valvular insufficiency or stenosis. 5. No evidence of pericardial effusion or left ventricular thrombus. TRANSINT:[id number] Voice Confirmation ID: [id number] DOCUMENT ID: [id number] MARTHA GÓMEZ MD at 1431 CC: [id number] DICTATION DATE: 12/09/18 1214 FUNERAL HOME ATTENDANT: 12/09/18 1233 DIS IN 12/10/18 [facility] [address] [place] [address]
--- NOTE | 2019-01-05 13:38 | DS ---
PATIENT:MELY VIGIL :68 MEDICAL RECORD: [id number] DISCHARGE SUMMARY ADMISSION DATE: 12/07/18 DISCHARGE DATE: 12/10/18 PRINCIPAL DIAGNOSES: 1. Splenic rupture with hematoma. 2. Free intraperitoneal air. 3. Free intraperitoneal fluid. 4. Non-Q-wave myocardial infarction. 5. Coronary artery disease. 6. Recent laparoscopic hand-assisted left nephrectomy for cancer. 7. Blood loss anemia requiring transfusions. 8. Peripheral vascular disease. 9. Status post peripheral vascular operation by Dr. Osorio. 10. Hypotension. 11. Hard of hearing. 12. Acute kidney injury. 13. Hyperkalemia. 14. Hyperlipidemia. HOSPITAL COURSE: The patient was admitted through the Emergency Room. I am at a loss to explain why he had a normal appearing spleen at the time we were closing his hand-assisted laparoscopic left nephrectomy incision; however, he developed a splenic hematoma with rupture. I reviewed the CT images with the radiologist. We both agreed that there was more free intraperitoneal air than we would expect this far out from his operation. We gave the patient and his several options including laparotomy with splenectomy with lavage of the abdomen to determine if there was something other than hematoma present. Also, to determine the source of the free air if indeed it was more than could be accounted for by the patient's recent operation. We outlined several options including laparoscopy with possible laparotomy including a splenic embolization. They elected for splenic embolization. The patient denies any recent trauma. They state that he did not restart his Plavix, which could have been the source of bleeding. Anyhow, he continued to have some bleeding. There were some confrontations with the hospital staff. I am told the patient stormed out of the hospital, leaving against medical advice. It is my understanding that he promptly went to the Emergency Room at [facility]. TRANSINT:[id number] Voice Confirmation ID: [id number] DOCUMENT ID: [id number] 01/05/2019 Edited for windows administrator errors, dmm. DUNCAN CROWDER MD at 1338 CC: [id number] DICTATION DATE: 01/04/19 1845 RESOURCE MANAGER: 01/05/19 0945 DIS IN 12/10/18 [place] [address]
== END 2018-12-10 11:52 | disposition left against medical advice (07) | DRG 907 ==
LOC: D.ER 11:44 → D.MS 14:17 → D.CVICU 14:17
PROVIDERS: Family Medicine; Family Medicine Adult Medicine; General Practice; Internal Medicine Nephrology; Surgery; ADMIT Surgery; ATTEND Surgery
PROC: 04L13DZ Occlusion of Celiac Artery with Intraluminal Device, Percutaneous Approach (ICD-10-PCS; principal; 2018-12-08 13:00)
DX: D78.32 Postprocedural hematoma of the spleen following other procedure (principal); I21.4 Non-ST elevation (NSTEMI) myocardial infarction; F17.203 Nicotine dependence unspecified, with withdrawal; N17.9 Acute kidney failure, unspecified; I97.191 Other postprocedural cardiac functional disturbances following other surgery; D64.9 Anemia, unspecified; E83.42 Hypomagnesemia; N40.0 Benign prostatic hyperplasia without lower urinary tract symptoms; I73.9 Peripheral vascular disease, unspecified; I25.10 Atherosclerotic heart disease of native coronary artery without angina pectoris; I95.9 Hypotension, unspecified; E78.5 Hyperlipidemia, unspecified; E87.5 Hyperkalemia; E87.6 Hypokalemia; Z90.5 Acquired absence of kidney